=== PATIENT | male | born 1965 | race Caucasian/White ===

== ENCOUNTER 2022-02-17 10:03 | Inpatient (IN) ==
[2022-02-17] MEDS ORDERED: ACETAMINOPHEN 1,000 MG/100 ML VIAL IV STA (10:17)
[2022-02-17] MEDS ORDERED: SODIUM CHLORIDE 0.9% 1000ML 1,000 ML IV STA (10:17)
[2022-02-17] MEDS ORDERED: MULTI-VITAMIN INFUSION 10 ML, THIAMINE HCL 100 MG, FOLIC ACID 1 MG in SODIUM CHLORIDE 0... IV ONE (10:35)
[2022-02-17] MEDS ORDERED: LORazepam 2 MG/1 ML VIAL IV STA (10:39)
[2022-02-17] MEDS ORDERED: SODIUM CHLORIDE 0.9% 1000ML 1,000 ML IV ONE (10:39)
[2022-02-17 10:46] LABS: Basophils # (auto) 0.04 K/uL (0-0.2); Basophils % (auto) 0.4 %; Eosinophils % (auto) 0.9 %; Hematocrit (blood only) 54.4 % (40.1-51.0); Hemoglobin 19.2 g/dl (14.0-18.0); Immature Granulocytes # (auto) 0.04 K/uL (0.00-0.02); Immature Granulocytes % (auto) 0.4 %; Lymphocytes # (auto) 1.74 K/uL (1.2-3.4); Lymphocytes % (auto) 15.5 %; Mean Corpuscular Hemoglobin 32.1 pg (25.0-34.0); Mean Corpuscular Hgb Conc 35.3 g/dL (32.0-36.0); Mean Corpuscular Volume 90.8 fL (80.0-100.0); Mean Platelet Volume 9.9 fL (9.4-12.4); Monocytes # (auto) 1.19 K/uL (0.24-0.82); Monocytes % (auto) 10.6 %; Neutrophils # (auto) 8.14 K/uL (1.4-6.5); Neutrophils % (auto) 72.2 %; Platelet Count 248 K/uL (130-400); RDW Coefficient of Variation 12.9 % (11.5-14.5); RDW Standard Deviation 42.4 fL (36.4-46.3); Red Blood Count 5.99 M/uL (4.63-6.08); White Blood Count 11.25 K/ul (4.8-10.8)
[2022-02-17 10:56] LABS: INR 1.2 (0.9-1.1); Prothrombin Time 12.2 Seconds (9.0-12.0)
[2022-02-17 11:15] LABS: Albumin Globulin Ratio 1.1 (0.9-2); Albumin Level 4.1 gm/dl (3.4-5.0); BUN Creatinine Ratio 10.8 (10-20); Bilirubin,Total 1.4 mg/dl (0.2-1.0); Calcium 9.2 mg/dl (8.5-10.1); Creatinine Clr Calc Pharmacy 116.9 ml/min; Est GFR (African American) 114.8 ml/min; Est GFR (Non-African American) 99.1 ml/min; Globulin 3.8 gm/dl (2.5-4.0); Magnesium 1.7 mg/dl (1.7-2.4); Phosphorus 3.1 mg/dl (2.5-4.9); Potassium 3.7 mmol/L (3.5-5.1); Total Protein 7.9 gm/dl (6.0-8.3)
[2022-02-17 11:17] LABS: Troponin I High Sensitivity 10.8 pg/ml (0-20)
--- NOTE | 2022-02-17 11:32 | Electrocardiogram Report ---
Test Reason : Blood Pressure : / mmHG Vent. Rate : 096 BPM Atrial Rate : 096 BPM P-R Int : 140 ms QRS Dur : 072 ms QT Int : 384 ms P-R-T Axes : 036 026 058 degrees QTc Int : 485 ms Normal sinus rhythm Poor R wave progression, consider anterior SC vs. lead placement vs. LVH Abnormal ECG When compared with ECG of 18-JUL-2012 10:10, Sinus rhythm has replaced Atrial fibrillation Confirmed by Ryland Frias ([id number]) on 02/17/2022 11:32:17 AM Referred By: REFERRED SELF Confirmed By:Ryland Frias
--- NOTE | 2022-02-17 12:37 | XRay Report ---
XR chest 1V portable HISTORY: Weakness. Neck pain COMPARISON: Chest 07/17/2012. FINDINGS: A few left basilar linear densities persist and favor subsegmental atelectasis or scarring. Otherwise, the lungs are clear. The heart is normal in size. No pleural effusions. No pneumothorax. IMPRESSION: A few left basilar linear densities which favor subsegmental atelectasis or scarring. ACT 112: Negative or not required by law. Electronically signed by: Christiano Rouse M.D. 02/17/2022 12:36 PM
[2022-02-17] MEDS ORDERED: OPTIRAY 320 500ml IV ONE (12:56)
--- NOTE | 2022-02-17 13:14 | CT Scan Report ---
UNENHANCED CT OF THE BRAIN; CT ANGIOGRAM OF THE BRAIN; CT ANGIOGRAM OF THE NECK CLINICAL HISTORY: Neck pain. Right-sided paresthesias and weakness. COMPARISON STUDY: No priors. TECHNIQUE: Unenhanced axial CT scan of the brain is performed. Subsequently, following the IV adminis tration of 114 of Optiray 320, CT angiogram of the head and neck was performed from the aortic arch t o the vertex. Images are reviewed in the axial, sagittal, and coronal planes. 3-D MIPS images are cre ated and assessed. IV contrast was administered without complication. All measurements were calculate d based on NASCET criteria. A dose lowering technique was utilized adhering to the principles of ALA RA. CT DOSE: 2494.32 mGy.cm FINDINGS: Brain parenchyma: There is loss of pan-white matter differentiation throughout the left occipital lo be and within the posterior left temporal lobe consistent with a large subacute infarct. There is mil d surrounding edema. No hemorrhage or midline shift is identified. There is no evidence of enhancing mass lesion on the angiogram phase images. There is an age indeterminate but chronic-appearing lacuna r infarct within the left aspect of the fabian. The ventricles, sulci, and cisterns are normal in confi guration. No extra-axial fluid collection is seen. Thoracic aorta: Visualized portions of the thoracic aorta are normal in caliber. The aortic arch demo nstrates standard 3-vessel anatomy. Right carotid arterial system: The right common carotid artery is widely patent, as are the right int ernal and external carotid arteries. Calcified plaque is noted in the carotid bulb. Left carotid arterial system: The left common carotid artery is widely patent. Atherosclerotic plaque within the carotid bulb causes less than 50% luminal narrowing of the proximal internal carotid adan ry. The internal and external carotid arteries are otherwise widely patent. Vertebral arteries: There is focal high-grade stenosis of the proximal left vertebral artery. This is seen on axial image #82. There is mild stenosis of the origin of the right vertebral artery. The libia tebral arteries are otherwise patent bilaterally noting left-sided dominance. Subclavian arteries: There is moderate stenosis of the right subclavian artery at the thoracic outlet seen on axial image #74. The left subclavian artery is widely patent. Intracranial vasculature: There is moderate atherosclerotic calcification of the cavernous carotid ar teries. The internal carotid arteries are patent at the skull base, as are the anterior and middle ce rebral arteries bilaterally. There is focal high-grade stenosis within the complete occlusion of the left cavernous carotid artery, best seen on axial image #110. The vertebral arteries and the basilar artery are patent, as is the right posterior cerebral artery. There is complete thrombosis of the lef t posterior cerebral artery. This originates on axial image #122. The left vertebral artery is domina nt. No aneurysm is seen throughout the intracranial circulation. Jugular veins: Patent bilaterally. Dural sinuses: Patent. Lung apices: Partially visualized upper lobe lung parenchyma appears clear. Soft tissues: The visualized pharyngeal soft tissues are normal in appearance noting angiographic pha se technique. The oropharyngeal airway appears widely patent. The salivary and thyroid glands are nor mal in appearance. No cervical lymphadenopathy is seen. Skeletal structures: The calvarium appears intact. The cervical spine is maintained noting mild spond ylosis. No lytic or blastic lesion is seen. Orbits: The bony orbits are intact. Orbital contents are normal as visualized. Sinuses and mastoids: The paranasal sinuses are clear. The mastoid air cells are well pneumatized. IMPRESSION: 1. 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 2. No additional foci of acute ischemia are identified by CT. 3. There is no hemorrhage or midline shift. 4. 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 5. There is focal high-grade stenosis with near complete occlusion of the left cavernous carotid adan ry. 6. The remaining intracranial vessels are patent. 7. There is focal high-grade stenosis of the proximal left vertebral artery. 8. There is at least mild stenosis at the origin of the right vertebral artery. 9. There is moderate stenosis of the right subclavian artery at the thoracic outlet. 10. Additional findings as above. ACT 112: Negative or not required by law. Electronically signed by: Hemanth Pandya M.D. 02/17/2022 1:13 PM
--- NOTE | 2022-02-17 13:28 | CT Scan Report ---
CT ANGIOGRAM OF THE CHEST COMBO CLINICAL HISTORY: Right arm pain and numbness. Hypertension. COMPARISON STUDY: Chest x-ray dated 02/17/2022. TECHNIQUE: Before and following the IV administration of 114 cc of Optiray 320, CT angiogram of the c hest was performed from the thoracic inlet to the upper abdomen utilizing the dissection protocol. Im ages are reviewed in the axial, sagittal, and coronal planes. 3-D MIPS images are created and assesse d. IV contrast was administered without complication. A dose lowering technique was utilized adherin g to the principles of ALARA. The examination is degraded by motion artifact, as well as by streak ar tifact from the arms which could not be elevated above the chest. FINDINGS: Thyroid: Imaged portions of the thyroid gland are normal in size and attenuation. Thoracic aorta: No intramural hematoma is seen on the unenhanced series. There is moderate atheroscle rotic calcification of the thoracic aorta, which is normal in caliber and demonstrates standard 3-ves jazmyne arch anatomy. No dissection is seen. The arch vessels are patent. There is moderate stenosis of t he right subclavian artery at the thoracic outlet seen on axial image #300. There is focal high-grade stenosis of the proximal left vertebral artery seen on image #303. Pulmonary vasculature: The pulmonary trunk is normal in caliber. There are no filling defects identif ied in the main, lobar, or segmental pulmonary arteries to indicate pulmonary embolus. Heart: The heart is mildly enlarged and without pericardial effusion. The coronary arteries are also calcified. Lungs and pleural spaces: Low suspicion 3 mm left lower lobe pulmonary nodules are seen on images #21 9, #237, and #239. There is no airspace consolidation or pleural effusion. Scarring/atelectasis is se en at the lung bases. The trachea and central airways are patent. Punctate calcified granulomas are i ncidentally noted. Mediastinum: There is no mediastinal lymphadenopathy. Phoebe: Clear. Axillae: There is no axillary lymphadenopathy. Upper abdomen: There is a small hiatal hernia. Partially visualized upper abdominal viscera is within normal limits. Skeletal structures: No lytic or blastic bony lesions are seen. IMPRESSION: 1. Unremarkable CT angiogram of the thoracic aorta. 2. There is moderate stenosis of the right subclavian artery at the thoracic outlet. 3. There is focal high-grade stenosis of the proximal left vertebral artery. 4. No airspace consolidation or pleural effusion is identified. 5. Advanced coronary artery calcification. 6. There is no evidence of pulmonary embolus in the main, lobar, or segmental pulmonary arteries. 7. Additional findings as above. ACT 112: Negative or not required by law. Electronically signed by: Hemanth Pandya M.D. 02/17/2022 1:26 PM
[2022-02-17] MEDS ORDERED: LORazepam 1 MG TAB SL STA (14:32)
[2022-02-17] MEDS: NICOTINE 21 MG/24 HR TDSY TD SCH (15:14)
--- NOTE | 2022-02-17 15:18 | History & Physical Report ---
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 territory SENIOR ENVIRONMENTAL PRACTICE LEADER with ipsilateral high-grade stenosis and near complete occlusion of left cavernous carotid, left vertebral Patient with right-sided weakness, some decreased right-sided decreased coordination, and right decreased visual acuity with right peripheral field cut - Was discussed with ER provider and neurology, given last known well 4 weeks ago and current symptom severity 48 hours patient is not a tPA candidate, SENIOR ENVIRONMENTAL PRACTICE LEADER occlusion/ not a thrombectomy candidate Start on aspirin 81 mg - MRI pending Atorvastatin 40 mg started, increased to 80 lungs LDL has not <50 Patient with ipsilateral severe carotid disease. Severe left vertebral and mild right vertebral disease. Vascular consulted Type II DM evaluation including A1c pending, insulin SSI as noted Permissive hypertension, labetalol for systolic greater than 180, diastolic greater than 110 (2) Alcohol dependence: Plan: Alcohol abuse Last drink chema 02/16 prior to admission Drinks at least 2 large whiskey drinks per day, each drink is about the size of a coffee cup of liquor. Handle lasts about a week, previously would last a few days. Did cut back about 6 months ago No history of withdrawal or seizure, has not gone for more than 24 hours without alcohol in "a long time High risk for withdrawal, seizure risk and currently with subacute large territory stroke as above We will start on Librium protocol, AWSS Banana bag, thiamine daily. high dose thiamine protocol ordered. Folic acid daily (3) Left carotid artery stenosis: Plan: Left-sided focal carotid stenosis Ipsilateral to stroke as noted above Vascular consulted (4) Hypertension: Plan: Permissive hypertension in the setting of CVA, As noted (5) Elevated hemoglobin: Plan: Suspect mild elevation in the setting of sleep apnea and chronic tobacco use Trend - No ches tpain or sob at assessment (6) Coronary artery disease: Plan: Coronary artery disease Noted with extensive calcifications on CT. Patient denies history of AR/CAD Lipid panel pending Continue atorvastatin moderate dose at this time, increase to high-dose as long as LDL not suppressed Aspirin as noted (7) CAD (coronary artery disease): (8) Type 2 diabetes mellitus: Plan: Patient reports BSG was normal after being on metformin, had weight loss and no longer required antilipemics many years ago Admitting BSG 150 Weight-based 8 units Lantus twice daily, CF 45, carb ratio 16 goal BSG [id number] while inpatient -A1c pending History of Present Illness Primary Care Provider: Seth Mueller Anton Morales is a 56-year-old male with daily alcohol use, tobacco use, history of hypertension, DM2 who presented with 2 weeks of right upper and lower extremity poor coordination and expressive aphasia and to was recommended for stroke management. Head CT shows a large subacute left SENIOR ENVIRONMENTAL PRACTICE LEADER infarct, no hemorrhage/midline shift, complete thrombosis of the left SENIOR ENVIRONMENTAL PRACTICE LEADER, focal high-grade stenosis with near complete occlusion of left cavernous carotid, focal high-grade stenosis of proximal left vertebral artery, mild stenosis at the origin of the right vertebral, moderate stenosis of right subclavian Chest CTA: Unremarkable CT angiogram of the thoracic aorta, moderate stenosis of right subclavian artery, focal high-grade stenosis of proximal left vertebral, no evidence of PE, advanced coronary calcification CXR: Bibasilar linear densities favoring atelectasis versus scarring Admitting WBC 11.25, hemoglobin 19? Hemoconcentration versus polycythemia with tobacco use MCV 90 INR 1.2 Sodium 134, potassium 3.7 Creatinine 0.83 with normal baseline Total bili 1.4, AST 12, ALT 10, alk phos 104 Ethyl alcohol negative COVID-negative EKG: Normal sinus rhythm with poor R wave progression. Sinus, rate 96. EKG 07/18/2022: A. fib rate controlled External medication reconciliation unavailable PCP Dr. Ervin Dominguez is seen at the beside with his present. Endorses R side arm and leg weakness. AWSS 8. "Sydni" reports over the last 3-4 weeks has been having numbness, tingling and poor coordination in his R arm and leg. Has had some pain sometimes and then complete numbness in the R arm/hand/leg intermittently. His came home from work this past thursday (48 hours ago) and was still in bed. Walking was muchmore unstable than previously, and was staying in bed very fatigued and weak. 'Equilibrium jsut wasn't right" Seems more forgetful and has been having some difficulty with word searching. L arm is 'ok sometimes some light tingling in fingertips but nothing like the right.' EtOH intake daily. AWife thought it might have been withdrawal and didn't immediately come in for stroke bc thought it could have been alchol Daily drinking 2x whiskey in the evening, each drink 'to go coffee cup sized.' 1.5 handle per week, cut back about 6 months from a handle every few days. Has not had an alcohol free period greater than 24 hours in 'a long time.' NO hx of seizures, no history of alcohol withdrawal. Daily smoker 1ppd since teenager, at least 40 years No vaping Denies hx of heart attacks, chest pain, or stroke Denies hx of TIA Endorses RIA on CPAP Denies hx COPD Not sure if HTN Hx T2DM. Pt thinks he was on this a whiel ago, his reports this was ~9 years ago, has not been on recently and pt thinks his blood sugar was good and was OK to stop this. Was on 'some type of shot at one point.' Lost a lot of weight on a shot, doesn't remember the details but hasn't needed a medicine for blood sugar in ~4-5 years. 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 Code Status: Full Code. Allergies Allergy/AdvReac Type Severity Reaction Status Date / Time No Known Allergies Allergy Mild NKA Verified 02/17/22 15:50 Home Medications Medication Instructions Recorded Confirmed Type No Known Home Medications 02/17/22 02/17/22 History Past Med/Surg History Medical History (Updated 02/17/22 @ 19:09 by Adan Pretty MD) Alcohol dependence Atrial fibrillation Hypertension Medical non-compliance Type 2 diabetes mellitus Family History Other Family history non-contributory Social History Smoking Status: Current every day smoker Tobacco Type: Cigarettes Cigarettes Per Day: 10; Do You Dip or Chew Tobacco: No; Hx Alcohol Use: Yes Alcohol type: hard liquor Alcohol Intake Frequency Comment: Daily Hx Substance Use: No Preferred Language: Malian 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 NAD. Cooperative. HEENT: Atraumatic, normocephalic. Pulm: CTAB A&P. -wheezes, -rales, -rhonchi. Symmetrical chest rise. No increase in work of breathing. No respiratory distress. Cardiac: RRR, -mrg. Radial pulses intact and symmetrical. Abdominal: Nontender, nondistended, soft. BS present. Neuro: 4 -/5 strength to right hip flexion, ankle dorsiflexion/plantarflexion compared to 5/5 on the left. Studio Hand strength 5/5 bilaterally, elbow flexion/extension 5/5 bilaterally. Sensation to soft touch qualitatively decreased in right arm and right leg compared to left. Decreased visual acuity in the right eye across all visual banda, right peripheral field cut/peripheral visual loss. [id number] with impaired coordination using right leg, [id number] testing with mild dysmetria on right side Results & Data Results & Data ([facility]) Vital Signs (Past 12 Hours) Vital Signs Temp Pulse Pulse Resp BP BP Pulse Ox 02/17/22 13:41 167/107 H 02/17/22 13:41 87 24 98 02/17/22 13:40 97 02/17/22 13:00 82 21 97 02/17/22 13:00 167/132 H 02/17/22 12:56 179/108 H 02/17/22 12:56 86 22 99 02/17/22 12:30 83 21 97 02/17/22 12:30 162/98 H 02/17/22 12:16 98 02/17/22 12:00 183/100 H 02/17/22 11:54 92 02/17/22 11:30 85 23 97 02/17/22 11:30 163/112 H 02/17/22 11:00 88 25 H 97 02/17/22 11:00 186/113 H 02/17/22 10:49 87 16 97 02/17/22 10:49 187/109 H 02/17/22 10:30 99 H 31 H 02/17/22 10:29 97 H 18 02/17/22 10:53 95 02/17/22 10:50 88 20 187/109 H 97 02/17/22 10:33 95 H 20 97 02/17/22 10:06 36.4 C L 111 H 16 162/127 H 97 O2 Del Method 02/17/22 13:41 02/17/22 13:41 02/17/22 13:40 02/17/22 13:00 02/17/22 13:00 02/17/22 12:56 02/17/22 12:56 02/17/22 12:30 02/17/22 12:30 02/17/22 12:16 02/17/22 12:00 02/17/22 11:54 02/17/22 11:30 Room Air 02/17/22 11:30 02/17/22 11:00 Room Air 02/17/22 11:00 02/17/22 10:49 02/17/22 10:49 02/17/22 10:30 02/17/22 10:29 02/17/22 10:53 Room Air 02/17/22 10:50 Room Air 02/17/22 10:33 Room Air 02/17/22 10:06 Room Air PG Care Time/CCT Total # of Minutes Spent Total Time Spent with Patient: Total time spent is greater than 50% in coordination of care (as documented) at patient's floor/unit and/or counseling patient: Coding Level of Care Code 76801 Initial Inpt Care Lvl 3 Diagnoses Cerebrovascular accident I63.332 CVA mechanism: thrombosis Laterality of affected vessel: left Precerebral and cerebral artery: posterior cerebral artery Alcohol dependence F10.20 Left carotid artery stenosis I65.22 Hypertension I10 Elevated hemoglobin D58.2 Coronary artery disease I25.10 CAD (coronary artery disease) I25.10 Type 2 diabetes mellitus E11.9 (1) Cerebrovascular accident CVA mechanism: thrombosis Laterality of affected vessel: left Precerebral and cerebral artery: posterior cerebral artery Qualified Code(s): I63.332 - Cerebral infarction due to thrombosis of left posterior cerebral artery
--- NOTE | 2022-02-17 17:02 | Emergency Department Note ---
Impression & Plan Cerebrovascular accident, Hypertension, Elevated hemoglobin, Elevated hematocrit, Medical non-compliance, Alcohol dependence, Left carotid artery stenosis ED Provider Note NAME: CELINE GARCIA AGE: 56 SEX: M ARRIVES VIA: Walk-In INFORMANT: Patient ED PROVIDER(S): Anibal Rivas MD CHIEF COMPLAINT: Right sided weakness. PLAN: Disposition: Admit MEDICAL DECISION MAKING: The patient is a 56-year-old gentleman with a past medical history of hyperte nsion, diabetes, alcohol abuse/dependence, history of atrial fibrillation who presents to the emergency department accompanied by his as a walk-in for evaluation of ongoing difficulty with balance and right sided numbness tingling and weakness over the past several weeks. The patient's reports that he has not wanted to be evaluated and was only able to be convinced to come to the emergency department today. She reports that he has continued to work and there were no reports by his coworkers of any concern. The patient's admits that given his history of alcohol use can be difficult to notice any changes. He reports he drinks "2 drinks" a day though his reports that these are "large drinks". The patient reports he cannot recall the last time he is gone more than several days without drinking alcohol. They admit that the patient stopped going to his doctor and has stopped taking his medications for some time. On arrival the patient is no acute distress, afebrile with heart in the 100s and blood pressure 160s/120s. The patient appears clinically dry. He has subtle weakness of his right upper and right lower extremity with impaired coordination with [id number], alternating palms and [id number]. He appears to have mild-moderate expressive aphasia though it is unclear if he also has difficulty processing. He has a mild tremor. WBC 11.2K nonspecific. H/H 19.2/54.4 in the setting of smoking history and the patient's clinically dry appearance. Platelets within normal limits. INR 1.2 without prior for comparison. Chemistry without metabolic acidosis. Total bili 1.4 and AST and ALT and alk phos are not elevated. High-sensitivity troponin 10 .8, nonspecific. Lipase is not elevated. Medical alcohol was undetectable. COVID-19 RNA, VASQUEZ test was negative CT of the head and CTA of the head and neck were performed. This demonstrated large left [employer] territory subacute stroke. Note is made of complete occlusion of the left [employer] as well as near complete occlusion of the cavernous left ICA. Additional vascular findings also noted. Findings reviewed with the patient and his at the bedside. Of note, it became more apparent at this time that the patient does not appear that he is able to exhibit medical decision-making capacity due to his expressive aphasia as well as unclear understanding/processing of information. After I had exp lained his findings and concerns in detail, he was unable to repeat this in his own words in any substantive way. He was however in agreement to proceed with admission as this was his 's preference and decision. Of note, the patient was treated with IV fluid hydration including banana bag as well as Ativan for component of alcohol withdrawal. It is noted that the patient did not have any drowsiness following Ativan administration. Case was discussed with Dr. Pretty, [facility] hospitalist, who will evaluate the patient for admission. Case additionally discussed with Dr. Jackson and agrees that given duration of the patient's symptoms there will be no intervention for the patient's [employer] and ICA occlusions. Given no evidence of hemorrhagic transformation on CT he can begin aspirin. Admitting team updated. Triage Nursing notes reviewed and agree them. Prior medical records reviewed Vital Signs: reviewed Differential diagnosis: Infection, dehydration, metabolic abnormality, hypo/hyperglycemia, electrolyte disturbance, anemia, hypoxia, cardiac sources, intracerebral event, toxicologic, neurologic, as well as other pathologies. ER treatment provided: See below. Diagnostics interpreted by me: ECG: Normal sinus rhythm, 96 bpm, LVH, no overt ST elevation or depression, QTC 45, cures 72. Cardiac Monitoring: An order for continuous cardiac monitoring was placed and demonstrated normal sinus rhythm, 96 bpm, no ectopy. Laboratory studies: See below Imaging studies: See below Consultation(s): Dr. Pretty [facility] hospitalist Dr. Rodriguez, [place] neurology on-call. HPI: The patient is a 56-year-old gentleman with a past medical history of hypertension, diabetes, alcohol abuse/dependence, history of atrial fibrillation who presents to the emergency department accompanied by his as a walk-in for evaluation of ongoing difficulty with balance and right sided numbness tingling and weakness over the past several weeks. The patient's reports that he has not wanted to be evaluated and was only able to be convinced to come to the emergency department today. She reports that he has continued to work an d there were no reports by his coworkers of any concern. The patient's admits that given his history of alcohol use can be difficult to notice any changes. He reports he drinks "2 drinks" a day though his reports that these are "large drinks". The patient reports he cannot recall the last time he is gone more than several days without drinking alcohol. They admit that the patient stopped going to his doctor and has stopped taking his medications for some time. ROS: See above HPI for pertinent positives & negatives. A total of 10 systems reviewed and were otherwise negative. VITALS:See Below PHYSICAL EXAMINATION: GENERAL: Awake, alert, fatigued-appearing, in no distress HENT: Normocephalic, atraumatic. Oropharynx with dry mucous membranes and otherwise unremarkable. EYES: Normal conjunctiva. Sclera non-icteric. NECK: Supple. No nuchal rigidity. FROM. No JVD. RESPIRATORY: Clear to auscultation. CARDIAC: Regular rate, normal rhythm. Extremities warm and well perfused. Pulses equal. ABDOMEN: Soft, non-distended. No tenderness to palpation. No rebound or guarding. No masses. RECTAL: Deferred. MUSCULOSKELETAL: Chest examination reveals no tenderness. The back is symmetrical on inspection without obvious abnormality. There is no CVA tenderness to palpation. No joint edema. LOWER EXTREMITIES: Calves are equal size bilaterally and non-tender. No edema. No discoloration. NEURO: Subtle weakness of his right upper and right lower extremity with impaired coordination with [id number], alternating palms and maee-tp-[id number]. He appears to have mild-moderate expressive aphasia though it is unclear if he also has difficulty processing. He has a mild tremor. SKIN: No rash or jaundice noted. Anibal Rivas MD Past Med/Surg History Medical History Alcohol dependence Atrial fibrillation Hypertension Medical non-compliance Type 2 diabetes mellitus Family History Other Family history non-contributory Social History Smoking Status: Current every day smoker Tobacco Type: Cigarettes Hx Alcohol Use: Yes Alcohol type: hard liquor Alcohol Intake Frequency Comment: Daily Preferred Language: Turkish Feels Safe at Home: Yes Allergies Allergies Allergy/AdvReac Type Severity Reaction Status Date / Time No Known Allergies Allergy Mild NKA Verified 02/17/22 15:50 Home Meds Home Medications Medication Instructions Recorded Confirmed No Known Home Medications 02/17/22 02/17/22 Results & Data (ED) Vital Signs Vital Signs - 24 hr 02/17/22 10:06 02/17/22 10:33 02/17/22 10:50 Temperature 36.4 C L Temperature Source Temporal Artery Scan Pulse Rate 111 H 95 H Pulse Rate [Apical] 88 Pulse Rate from SpO2 Sensor Respiratory Rate 16 20 20 Respiratory Effort / Characteristics Non-Labored Spontaneous Non-Labored Spontaneous Respiratory Depth Normal Normal Respiratory Pattern Regular Regular Blood Pressure 162/127 H Blood Pressure [Right Arm] 187/109 H Blood Pressure Mean 138 Blood Pressure Mean [Right Arm] 135 Blood Pressure Position Sitting Pulse Oximetry 97 97 97 Oxygen Delivery Method Room Air Room Air Room Air Sepsis Recent Fever Within 48 Hours No Sepsis New/Unexplained Change in Mental Status No Sepsis Action Taken by Nursing No Action Required 02/17/22 10:53 02/17/22 10:29 02/17/22 10:30 Temperature Temperature Source Pulse Rate 97 H 99 H Pulse Rate [Apical] Pulse Rate from SpO2 Sensor Respiratory Rate 18 31 H Respiratory Effort / Characteristics Respiratory Depth Respiratory Pattern Blood Pressure Blood Pressure [Right Arm] Blood Pressure Mean Blood Pressure Mean [Right Arm] Blood Pressure Position Pulse Oximetry 95 Oxygen Delivery Method Room Air Sepsis Recent Fever Within 48 Hours Sepsis New/Unexplained Change in Mental Status Sepsis Action Taken by Nursing 02/17/22 10:49 02/17/22 10:49 02/17/22 11:00 Temperature Temperature Source Pulse Rate 87 Pulse Rate [Apical] Pulse Rate from SpO2 Sensor 86 Respiratory Rate 16 Respiratory Effort / Characteristics Respiratory Depth Respiratory Pattern Blood Pressure 187/109 H 186/113 H Blood Pressure [Right Arm] Blood Pressure Mean 135 137 Blood Pressure Mean [Right Arm] Blood Pressure Position Pulse Oximetry 97 Oxygen Delivery Method Sepsis Recent Fever Within 48 Hours Sepsis New/Unexplained Change in Mental Status Sepsis Action Taken by Nursing 02/17/22 11:00 02/17/22 11:30 02/17/22 11:30 Temperature Temperature Source Pulse Rate 88 85 Pulse Rate [Apical] Pulse Rate from SpO2 Sensor 87 85 Respiratory Rate 25 H 23 Respiratory Effort / Characteristics Respiratory Depth Respiratory Pattern Blood Pressure 163/112 H Blood Pressure [Right Arm] Blood Pressure Mean 129 Blood Pressure Mean [Right Arm] Blood Pressure Position Pulse Oximetry 97 97 Oxygen Delivery Method Room Air Room Air Sepsis Recent Fever Within 48 Hours Sepsis New/Unexplained Change in Mental Status Sepsis Action Taken by Nursing 02/17/22 11:54 02/17/22 12:00 02/17/22 12:16 Temperature Temperature Source Pulse Rate Pulse Rate [Apical] Pulse Rate from SpO2 Sensor 87 95 H Respiratory Rate Respiratory Effort / Characteristics Respiratory Depth Respiratory Pattern Blood Pressure 183/100 H Blood Pressure [Right Arm] Blood Pressure Mean 127 Blood Pressure Mean [Right Arm] Blood Pressure Position Pulse Oximetry 92 98 Oxygen Delivery Method Sepsis Recent Fever Within 48 Hours Sepsis New/Unexplained Change in Mental Status Sepsis Action Taken by Nursing 02/17/22 12:30 02/17/22 12:30 02/17/22 12:56 Temperature Temperature Source Pulse Rate 83 86 Pulse Rate [Apical] Pulse Rate from SpO2 Sensor 83 84 Respiratory Rate 21 22 Respiratory Effort / Characteristics Respiratory Depth Respiratory Pattern Blood Pressure 162/98 H Blood Pressure [Right Arm] Blood Pressure Mean 119 Blood Pressure Mean [Right Arm] Blood Pressure Position Pulse Oximetry 97 99 Oxygen Delivery Method Sepsis Recent Fever Within 48 Hours Sepsis New/Unexplained Change in Mental Status Sepsis Action Taken by Nursing 02/17/22 12:56 02/17/22 13:00 02/17/22 13:00 Temperature Temperature Source Pulse Rate 82 Pulse Rate [Apical] Pulse Rate from SpO2 Sensor 82 Respiratory Rate 21 Respiratory Effort / Characteristics Respiratory Depth Respiratory Pattern Blood Pressure 179/108 H 167/132 H Blood Pressure [Right Arm] Blood Pressure Mean 131 143 Blood Pressure Mean [Right Arm] Blood Pressure Position Pulse Oximetry 97 Oxygen Delivery Method Sepsis Recent Fever Within 48 Hours Sepsis New/Unexplained Change in Mental Status Sepsis Action Taken by Nursing 02/17/22 13:40 02/17/22 13:41 02/17/22 13:41 Temperature Temperature Source Pulse Rate 87 Pulse Rate [Apical] Pulse Rate from SpO2 Sensor 92 H 88 Respiratory Rate 24 Respiratory Effort / Characteristics Respiratory Depth Respiratory Pattern Blood Pressure 167/107 H Blood Pressure [Right Arm] Blood Pressure Mean 127 Blood Pressure Mean [Right Arm] Blood Pressure Position Pulse Oximetry 97 98 Oxygen Delivery Method Sepsis Recent Fever Within 48 Hours Sepsis New/Unexplained Change in Mental Status Sepsis Action Taken by Nursing Laboratory Data Attestation: I reviewed the patient's lab results. Result diagrams: 02/17/22 10:33 02/17/22 10:33 Lab Results 02/17/22 02/17/22 02/17/22 Range/Units 10:33 10:33 10:33 WBC 11.25 H (4.8-10.8) K/ul RBC 5.99 (4.63-6.08) M/uL Hgb 19.2 H (14.0-18.0) g/dl Hct 54.4 H (40.1-51.0) % MCV 90.8 (80.0-100.0) fL MCH 32.1 (25.0-34.0) pg MCHC 35.3 (32.0-36.0) g/dL RDW Std Deviation 42.4 (36.4-46.3) fL RDW Coeff of Mary 12.9 (11.5-14.5) % Plt Count 248 (130-400) K/uL MPV 9.9 (9.4-12.4) fL Immature Gran % (Auto) 0.4 % Neut % (Auto) 72.2 % Lymph % (Auto) 15.5 % [place] % (Auto) 10.6 % Eos % (Auto) 0.9 % Baso % (Auto) 0.4 % Neut # (Auto) 8.14 H (1.4-6.5) K/uL Lymph # (Auto) 1.74 (1.2-3.4) K/uL [place] # (Auto) 1.19 H (0.24-0.82) K/uL Eos # (Auto) 0.10 (0-0.50) K/uL Baso # (Auto) 0.04 (0-0.2) K/uL Immature Gran # (Auto) 0.04 H (0.00-0.02) K/uL PT 12.2 H (9.0-12.0) Seconds INR 1.2 H (0.9-1.1) Sodium 134 L (136-145) mmol/L Potassium 3.7 (3.5-5.1) mmol/L Chloride 97 L (98-107) mmol/L Carbon Dioxide 25 (21-32) mmol/L Anion Gap 12 H (3-11) BUN 9 (6-23) mg/dl Creatinine 0.83 (0.6-1.4) mg/dl Est Cr Clr Drug Dosing 116.9 ml/min Est GFR ( Amer) 114.8 ml/min Est GFR (Non-Af Amer) 99.1 ml/min BUN/Creatinine Ratio 10.8 (10-20) Glucose 150 H (70-99(Fasting)) mg/dl Calcium 9.2 (8.5-10.1) mg/dl Phosphorus 3.1 (2.5-4.9) mg/dl Magnesium 1.7 (1.7-2.4) mg/dl Total Bilirubin 1.4 H (0.2-1.0) mg/dl AST 12 L (13-39) U/L ALT 10 (7-52) U/L Alkaline Phosphatase 104 (34-104) U/L Troponin I High Sens 10.8 (0-20) pg/ml Total Protein 7.9 (6.0-8.3) gm/dl Albumin 4.1 (3.4-5.0) gm/dl Globulin 3.8 (2.5-4.0) gm/dl Albumin/Globulin Ratio 1.1 (0.9-2) Lipase 6 L (11-82) U/L Ethyl Alcohol mg/dL (<10.0) mg/dl SARS-CoV-2, RNA, NAAT (NEGATIVE) 02/17/22 02/17/22 Range/Units 10:55 10:57 WBC (4.8-10.8) K/ul RBC (4.63-6.08) M/uL Hgb (14.0-18.0) g/dl Hct (40.1-51.0) % MCV (80.0-100.0) fL MCH (25.0-34.0) pg MCHC (32.0-36.0) g/dL RDW Std Deviation (36.4-46.3) fL RDW Coeff of Mary (11.5-14.5) % Plt Count (130-400) K/uL MPV (9.4-12.4) fL Immature Gran % (Auto) % Neut % (Auto) % Lymph % (Auto) % [place] % (Auto) % Eos % (Auto) % Baso % (Auto) % Neut # (Auto) (1.4-6.5) K/uL Lymph # (Auto) (1.2-3.4) K/uL [place] # (Auto) (0.24-0.82) K/uL Eos # (Auto) (0-0.50) K/uL Baso # (Auto) (0-0.2) K/uL Immature Gran # (Auto) (0.00-0.02) K/uL PT (9.0-12.0) Seconds INR (0.9-1.1) Sodium (136-145) mmol/L Potassium (3.5-5.1) mmol/L Chloride (98-107) mmol/L Carbon Dioxide (21-32) mmol/L Anion Gap (3-11) BUN (6-23) mg/dl Creatinine (0.6-1.4) mg/dl Est Cr Clr Drug Dosing ml/min Est GFR ( Amer) ml/min Est GFR (Non-Af Amer) ml/min BUN/Creatinine Ratio (10-20) Glucose (70-99(Fasting)) mg/dl Calcium (8.5-10.1) mg/dl Phosphorus (2.5-4.9) mg/dl Magnesium (1.7-2.4) mg/dl Total Bilirubin (0.2-1.0) mg/dl AST (13-39) U/L ALT (7-52) U/L Alkaline Phosphatase (34-104) U/L Troponin I High Sens (0-20) pg/ml Total Protein (6.0-8.3) gm/dl Albumin (3.4-5.0) gm/dl Globulin (2.5-4.0) gm/dl Albumin/Globulin Ratio (0.9-2) Lipase (11-82) U/L Ethyl Alcohol mg/dL < 10.0 (<10.0) mg/dl SARS-CoV-2, RNA, NAAT NEGATIVE (NEGATIVE) Administered Medications Nicotine (Nicotine 21 Mg/24 Hr Tdsy) 21 mg TD QAM RADHA Stop: 03/19/22 14:44 Last Admin: 02/17/22 15:14 Dose: 21 mg Documented By: JS Discontinued Medications Sodium Chloride (Nss 1000ml) 1,000 mls @ 999 mls/hr IV .Q1H1M STA Stop: 02/17/22 11:17 Last Admin: 02/17/22 11:16 Dose: Not Given Documented By: TAURUS Acetaminophen (Ofirmev) 1,000 mg in 100 mls @ 400 mls/hr IV NOW STA Stop: 02/17/22 10:31 Last Infusion: 02/17/22 11:15 Dose: 0 mls/hr Documented By: Admin: 02/17/22 10:41 Dose: 400 mls/hr Documented By: EMELIA Multivitamins 10 ml/ Thiamine HCl 100 mg/ Folic Acid 1 mg/Sodium Chloride 1,011.2 mls @ 1,011.2 mls/hr IV .Q1H ONE Stop: 02/17/22 11:34 Last Infusion: 02/17/22 12:50 Dose: 0 mls/hr Documented By: Admin: 02/17/22 11:22 Dose: 1,011.2 mls/hr Documented By: TAURUS Sodium Chloride (Nss 1000ml) 1,000 mls @ 999 mls/hr IV .Q1H1M ONE Stop: 02/17/22 11:39 Last Infusion: 02/17/22 11:25 Dose: 0 mls/hr Documented By: Admin: 02/17/22 10:41 Dose: 999 mls/hr Documented By: EMELIA Ioversol (Optiray 320 500ml) 114 ml IV ONCE ONE Stop: 02/17/22 12:57 Last Admin: 02/17/22 12:42 Dose: 114 ml Documented By: HARSHA Lorazepam (Lorazepam 1 Mg/1 Ml Syr) 2 mg IV NOW STA; Protocol Stop: 02/17/22 10:40 Last Admin: 02/17/22 10:47 Dose: 2 mg Documented By: EMELIA Lorazepam (Lorazepam 1 Mg Tab) 1 mg SL NOW STA Stop: 02/17/22 14:33 Last Admin: 02/17/22 15:00 Dose: Not Given Documented By: TAURUS Imaging Data Radiologist's Impression: Chest X-Ray 02/17/22 10:17 XR chest 1V portable HISTORY: Weakness. Neck pain COMPARISON: Chest 07/17/2012. FINDINGS: A few left basilar linear densities persist and favor subsegmental atelectasis or scarring. Otherwise, the lungs are clear. The heart is normal in size. No pleural effusions. No pneumothorax. IMPRESSION: A few left basilar linear densities which favor subsegmental atelectasis or scarring. ACT 112: Negative or not required by law. Electronically signed by: Christiano Rouse M.D. 02/17/2022 12:[address] 02/17/22 10:[address] OF THE BRAIN; CT ANGIOGRAM OF THE BRAIN; CT ANGIOGRAM OF THE NECK CLINICAL HISTORY: Neck pain. Right-sided paresthesias and weakness. COMPARISON STUDY: No priors. TECHNIQUE: Unenhanced axial CT scan of the brain is performed. Subsequently, following the IV administration of 114 of Optiray 320, CT angiogram of the head and neck was performed from the aortic arch to the vertex. Images are reviewed in the axial, sagittal, and coronal planes. 3-D MIPS images are created and assessed. IV contrast was administered without complication. All measurements were calculated based on NASCET criteria. A dose lowering technique was utilized adhering to the principles of ALARA. CT DOSE: 2494.32 mGy.cm FINDINGS: Brain parenchyma: There is loss of pan-white matter differentiation throughout the left occipital lobe and within the posterior left temporal lobe consistent w ith a large subacute infarct. There is mild surrounding edema. No hemorrhage or midline shift is identified. There is no evidence of enhancing mass lesion on the angiogram phase images. There is an age indeterminate but chronic-appearing lacunar infarct within the left aspect of the fabian. The ventricles, sulci, and cisterns are normal in configuration. No extra-axial fluid collection is seen. Thoracic aorta: Visualized portions of the thoracic aorta are normal in caliber. The aortic arch demonstrates standard 3-vessel anatomy. Right carotid arterial system: The right common carotid artery is widely patent, as are the right internal and external carotid arteries. Calcified plaque is noted in the carotid bulb. Left carotid arterial system: The left common carotid artery is widely patent. Atherosclerotic plaque within the carotid bulb causes less than 50% luminal narrowing of the proximal internal carotid artery. The internal and external carotid arteries are otherwise widely patent. Vertebral arteries: There is focal high-grade stenosis of the proximal left vertebral artery. This is seen on axial image #82. There is mild stenosis of the origin of the right vertebral artery. The vertebral arteries are otherwise patent bilaterally noting left-sided dominance. Subclavian arteries: There is moderate stenosis of the right subclavian artery at the thoracic outlet seen on axial image #74. The left subclavian artery is widely patent. Intracranial vasculature: There is moderate atherosclerotic calcification of the cavernous carotid arteries. The internal carotid arteries are patent at the skull base, as are the anterior and middle cerebral arteries bilaterally. There is focal high-grade stenosis within the complete occlusion of the left cavernous carotid artery, best seen on axial image #110. The vertebral arteries and the basilar artery are patent, as is the right posterior cerebral artery. There is complete thrombosis of the left posterior cerebral artery. This originates on axial image #122. The left vertebral artery is dominant. No aneurysm is seen throughout the intracranial circulation. Jugular veins: Patent bilaterally. Dural sinuses: Patent. Lung apices: Partially visualized upper lobe lung parenchyma appears clear. Soft tissues: The visualized pharyngeal soft tissues are normal in appearance noting angiographic phase technique. The oropharyngeal airway appears widely patent. The salivary and thyroid glands are normal in appearance. No cervical lymphadenopathy is seen. Skeletal structures: The calvarium appears intact. The cervical spine is maintained noting mild spondylosis. No lytic or blastic lesion is seen. Orbits: The bony orbits are intact. Orbital contents are normal as visualized. Sinuses and mastoids: The paranasal sinuses are clear. The mastoid air cells are well pneumatized. IMPRESSION: 1. There is a large subacute left [employer] territory infarct. 2. No additional foci of acute ischemia are identified by CT. 3. There is no hemorrhage or midline shift. 4. 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 5. There is focal high-grade stenosis with near complete occlusion of the left cavernous carotid artery. 6. The remaining intracranial vessels are patent. 7. There is focal high-grade stenosis of the proximal left vertebral artery. 8. There is at least mild stenosis at the origin of the right vertebral artery. 9. There is moderate stenosis of the right subclavian artery at the thoracic outlet. 10. Additional findings as above. ACT 112: Negative or not required by law. Electronically signed by: Hemanth Pandya M.D. 02/17/2022 1:13 PM Head CTA 02/17/22 10:[address] OF THE BRAIN; CT ANGIOGRAM OF THE BRAIN; CT ANGIOGRAM OF THE NECK CLINICAL HISTORY: Neck pain. Right-sided paresthesias and weakness. COMPARISON STUDY: No priors. TECHNIQUE: Unenhanced axial CT scan of the brain is performed. Subsequently, following the IV administration of 114 of Optiray 320, CT angiogram of the head and neck was performed from the aortic arch to the vertex. Images are reviewed in the axial, sagittal, and coronal planes. 3-D MIPS images are created and assessed. IV contrast was administered without complication. All measurements were calculated based on NASCET criteria. A dose lowering technique was utilized adhering to the principles of ALARA. CT DOSE: 2494.32 mGy.cm FINDINGS: Brain parenchyma: There is loss of pan-white matter differentiation throughout the left occipital lobe and within the posterior left temporal lobe consistent with a large subacute infarct. There is mild surrounding edema. No hemorrhage or midline shift is identified. There is no evidence of enhancing mass lesion on the angiogram phase images. There is an age indeterminate but chronic-appearing lacunar infarct within the left aspect of the fabian. The ventricles, sulci, and cisterns are normal in configuration. No extra-axial fluid collection is seen. Thoracic aorta: Visualized portions of the thoracic aorta are normal in caliber. The aortic arch demonstrates standard 3-vessel anatomy. Right carotid arterial system: The right common carotid artery is widely patent, as are the right internal and external carotid arteries. Calcified plaque is noted in the carotid bulb. Left carotid arterial system: The left common carotid artery is widely patent. Atherosclerotic plaque within the carotid bulb causes less than 50% luminal narrowing of the proximal internal carotid artery. The internal and external carotid arteries are otherwise widely patent. Vertebral arteries: There is focal high-grade stenosis of the proximal left vertebral artery. This is seen on axial image #82. There is mild stenosis of the origin of the right vertebral artery. The vertebral arteries are otherwise patent bilaterally noting left-sided dominance. Subclavian arteries: There is moderate stenosis of the right subclavian artery at the thoracic outlet seen on axial image #74. The left subclavian artery is widely patent. Intracranial vasculature: There is moderate atherosclerotic calcification of the cavernous carotid arteries. The internal carotid arteries are patent at the skull base, as are the anterior and middle cerebral arteries bilaterally. There is focal high-grade stenosis within the complete occlusion of the left cavernous carotid artery, best seen on axial image #110. The vertebral arteries and the basilar artery are patent, as is the right posterior cerebral artery. There is complete thrombosis of the left posterior cerebral artery. This originates on axial image #122. The left vertebral artery is dominant. No aneurysm is seen throughout the intracranial circulation. Jugular veins: Patent bilaterally. Dural sinuses: Patent. Lung apices: Partially visualized upper lobe lung parenchyma appears clear. Soft tissues: The visualized pharyngeal soft tissues are normal in appearance noting angiographic phase technique. The oropharyngeal airway appears widely patent. The salivary and thyroid glands are normal in appearance. No cervical lymphadenopathy is seen. Skeletal structures: The calvarium appears intact. The cervical spine is maintained noting mild spondylosis. No lytic or blastic lesion is seen. Orbits: The bony orbits are intact. Orbital contents are normal as visualized. Sinuses and mastoids: The paranasal sinuses are clear. The mastoid air cells are well pneumatized. IMPRESSION: 1. There is a large subacute left [employer] territory infarct. 2. No additional foci of acute ischemia are identified by CT. 3. There is no hemorrhage or midline shift. 4. 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 5. There is focal high-grade stenosis with near complete occlusion of the left cavernous carotid artery. 6. The remaining intracranial vessels are patent. 7. There is focal high-grade stenosis of the proximal left vertebral artery. 8. There is at least mild stenosis at the origin of the right vertebral artery. 9. There is moderate stenosis of the right subclavian artery at the thoracic outlet. 10. Additional findings as above. ACT 112: Negative or not required by law. Electronically signed by: Hemanth Pandya M.D. 02/17/2022 1:13 PM Neck CTA 02/17/22 10:[address] OF THE BRAIN; CT ANGIOGRAM OF THE BRAIN; CT ANGIOGRAM OF THE NECK CLINICAL HISTORY: Neck pain. Right-sided paresthesias and weakness. COMPARISON STUDY: No priors. TECHNIQUE: Unenhanced axial CT scan of the brain is performed. Subsequently, following the IV administration of 114 of Optiray 320, CT angiogram of the head and neck was performed from the aortic arch to the vertex. Images are reviewed in the axial, sagittal, and coronal planes. 3-D MIPS images are created and assessed. IV contrast was administered without complication. All measurements were calculated based on NASCET criteria. A dose lowering technique was utilized adhering to the principles of ALARA. CT DOSE: 2494.32 mGy.cm FINDINGS: Brain parenchyma: There is loss of pan-white matter differentiation throughout the left occipital lobe and within the posterior left temporal lobe consistent with a large subacute infarct. There is mild surrounding edema. No hemorrhage or midline shift is identified. There is no evidence of enhancing mass lesion on the angiogram phase images. There is an age indeterminate but chronic-appearing lacunar infarct within the left aspect of the fabian. The ventricles, sulci, and cisterns are normal in configuration. No extra-axial fluid collection is seen. Thoracic aorta: Visualized portions of the thoracic aorta are normal in caliber. The aortic arch demonstrates standard 3-vessel anatomy. Right carotid arterial system: The right common carotid artery is widely patent, as are the right internal and external carotid arteries. Calcified plaque is noted in the carotid bulb. Left carotid arterial system: The left common carotid artery is widely patent. Atherosclerotic plaque within the carotid bulb causes less than 50% luminal narrowing of the proximal internal carotid artery. The internal and external carotid arteries are otherwise widely patent. Vertebral arteries: There is focal high-grade stenosis of the proximal left vertebral artery. This is seen on axial image #82. There is mild stenosis of the origin of the right vertebral artery. The vertebral arteries are otherwise patent bilaterally noting left-sided dominance. Subclavian arteries: There is moderate stenosis of the right subclavian artery at the thoracic outlet seen on axial image #74. The left subclavian artery is widely patent. Intracranial vasculature: There is moderate atherosclerotic calcification of the cavernous carotid arteries. The internal carotid arteries are patent at the skull base, as are the anterior and middle cerebral arteries bilaterally. There is focal high-grade stenosis within the complete occlusion of the left cavernous carotid artery, best seen on axial image #110. The vertebral arteries and the basilar artery are patent, as is the right posterior cerebral artery. There is complete thrombosis of the left posterior cerebral artery. This originates on axial image #122. The left vertebral artery is dominant. No aneurysm is seen throughout the intracranial circulation. Jugular veins: Patent bilaterally. Dural sinuses: Patent. Lung apices: Partially visualized upper lobe lung parenchyma appears clear. Soft tissues: The visualized pharyngeal soft tissues are normal in appearance noting angiographic phase technique. The oropharyngeal airway appears widely patent. The salivary and thyroid glands are normal in appearance. No cervical lymphadenopathy is seen. Skeletal structures: The calvarium appears intact. The cervical spine is maintained noting mild spondylosis. No lytic or blastic lesion is seen. Orbits: The bony orbits are intact. Orbital contents are normal as visualized. Sinuses and mastoids: The paranasal sinuses are clear. The mastoid air cells are well pneumatized. IMPRESSION: 1. There is a large subacute left [employer] territory infarct. 2. No additional foci of acute ischemia are identified by CT. 3. There is no hemorrhage or midline shift. 4. 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 5. There is focal high-grade stenosis with near complete occlusion of the left cavernous carotid artery. 6. The remaining intracranial vessels are patent. 7. There is focal high-grade stenosis of the proximal left vertebral artery. 8. There is at least mild stenosis at the origin of the right vertebral artery. 9. There is moderate stenosis of the right subclavian artery at the thoracic outlet. 10. Additional findings as above. ACT 112: Negative or not required by law. Electronically signed by: Hemanth Pandya M.D. 02/17/2022 1:13 PM Chest CTA 02/17/22 10:40 CT ANGIOGRAM OF THE CHEST COMBO CLINICAL HISTORY: Right arm pain and numbness. Hypertension. COMPARISON STUDY: Chest x-ray dated 02/17/2022. TECHNIQUE: Before and following the IV administration of 114 cc of Optiray 320, CT angiogram of the chest was performed from the thoracic inlet to the upper abdomen utilizing the dissection protocol. Images are reviewed in the axial, sagittal, and coronal planes. 3-D MIPS images are created and assessed. IV contrast was administered without complication. A dose lowering technique was utilized adhering to the principles of ALARA. The examination is degraded by motion artifact, as well as by streak artifact from the arms which could not be elevated above the chest. FINDINGS: Thyroid: Imaged portions of the thyroid gland are normal in size and attenuation. Thoracic aorta: No intramural hematoma is seen on the unenhanced series. There is moderate atherosclerotic calcification of the thoracic aorta, which is normal in caliber and demonstrates standard 3-vessel arch anatomy. No dissection is seen. The arch vessels are patent. There is moderate stenosis of the right subclavian artery at the thoracic outlet seen on axial image #300. There is focal high-grade stenosis of the proximal left vertebral artery seen on image #303. Pulmonary vasculature: The pulmonary trunk is normal in caliber. There are no filling defects identified in the main, lobar, or segmental pulmonary arteries to indicate pulmonary embolus. Heart: The heart is mildly enlarged and without pericardial effusion. The coronary arteries are also calcified. Lungs and pleural spaces: Low suspicion 3 mm left lower lobe pulmonary nodules are seen on images #219, #237, and #239. There is no airspace consolidation or pleural effusion. Scarring/atelectasis is seen at the lung bases. The trachea and central airways are patent. Punctate calcified granulomas are incidentally noted. Mediastinum: There is no mediastinal lymphadenopathy. Phoebe: Clear. Axillae: There is no axillary lymphadenopathy. Upper abdomen: There is a small hiatal hernia. Partially visualized upper abdominal viscera is within normal limits. Skeletal structures: No lytic or blastic bony lesions are seen. IMPRESSION: 1. Unremarkable CT angiogram of the thoracic aorta. 2. There is moderate stenosis of the right subclavian artery at the thoracic o utlet. 3. There is focal high-grade stenosis of the proximal left vertebral artery. 4. No airspace consolidation or pleural effusion is identified. 5. Advanced coronary artery calcification. 6. There is no evidence of pulmonary embolus in the main, lobar, or segmental pulmonary arteries. 7. Additional findings as above. ACT 112: Negative or not required by law. Electronically signed by: Hemanth Pandya M.D. 02/17/2022 1:26 PM Discharge Plan Visit Data Chief Complaint: Neuro Symptoms/Deficit Stated Complaint: PAIN DOWN RIGHT SIDE OF BODY ED Provider: Anibal Rivas Discharge Problem: Cerebrovascular accident, Hypertension, Elevated hemoglobin, Elevated hematocrit, Medical non-compliance, Alcohol dependence, Left carotid artery stenosis : Cerebrovascular accident Qualifiers: CVA mechanism: thrombosis Precerebral and cerebral artery: posterior cerebral artery Laterality of affected vessel: left Qualified Code(s): I63.332 - Cerebral infarction due to thrombosis of left posterior cerebral artery
[2022-02-17] MEDS ORDERED: chlordiazePOXIDE ALCOHOL WITHDRAWL 50MG PO STA (17:25)
[2022-02-17] MEDS ORDERED: Ativan IV Alcohol Withdrawal--Active Protocol IV PRN (17:25)
[2022-02-17] MEDS ORDERED: GLUCOSE 10 TAB/TUBE PO PRN (17:25)
[2022-02-17] MEDS ORDERED: GLUCOSE 40% GEL 15 GM TUBE PO PRN (17:25)
[2022-02-17] MEDS ORDERED: GLUCAGON FOR INJ 1 MG VIAL SQ PRN (17:25)
[2022-02-17] MEDS ORDERED: DEXTROSE 50% 50 ML SYRINGE IV PRN (17:25)
[2022-02-17] MEDS ORDERED: PHARMACIST DISCHARGE MED REC CONSULT PRN (17:25)
[2022-02-17] MEDS ORDERED: LORazepam 2 MG in SYRINGE 0 ML IV PRN (17:25)
[2022-02-17] MEDS ORDERED: CARBOHYDRATES FOR HYPOGLYCEMIA PO PRN (17:25)
[2022-02-17] MEDS ORDERED: LORazepam 3 MG in SYRINGE 0 ML IV PRN (17:25)
[2022-02-17] MEDS ORDERED: FOLIC ACID 1 MG in SYRINGE 9.8 ML IV SCH (17:25)
[2022-02-17] MEDS ORDERED: LORazepam 1 MG in SYRINGE 0 ML IV PRN (17:25)
[2022-02-17] MEDS: chlordiazePOXIDE HCl 25 MG CAP PO SCH ×2 (18:12→23:54)
[2022-02-17] MEDS ORDERED: LABETALOL HCL IV 5 MG/ML 20ML IV STA (18:22)
[2022-02-17] MEDS ORDERED: LABETALOL HCL IV 5 MG/ML 20ML IV PRN (18:22)
[2022-02-17] MEDS: LANTUS PER UNIT CHARGE SQ SCH (21:06)
[2022-02-17] MEDS: INSULIN ASPART PER UNIT SC SCH (21:06)
[2022-02-18] MEDS: chlordiazePOXIDE HCl 25 MG CAP PO SCH (05:06)
[2022-02-18 07:22] LABS: Basophils # (auto) 0.06 K/uL (0-0.2); Basophils % (auto) 0.6 %; Eosinophils # (auto) 0.21 K/uL (0-0.50); Eosinophils % (auto) 2.1 %; Hematocrit (blood only) 49.6 % (40.1-51.0); Hemoglobin 17.5 g/dl (14.0-18.0); Immature Granulocytes # (auto) 0.03 K/uL (0.00-0.02); Immature Granulocytes % (auto) 0.3 %; Lymphocytes % (auto) 16.9 %; Mean Corpuscular Hemoglobin 32.3 pg (25.0-34.0); Mean Corpuscular Hgb Conc 35.3 g/dL (32.0-36.0); Mean Corpuscular Volume 91.7 fL (80.0-100.0); Mean Platelet Volume 9.7 fL (9.4-12.4); Monocytes # (auto) 1.22 K/uL (0.24-0.82); Monocytes % (auto) 12.2 %; Neutrophils # (auto) 6.81 K/uL (1.4-6.5); Neutrophils % (auto) 67.9 %; Platelet Count 217 K/uL (130-400); RDW Standard Deviation 43.2 fL (36.4-46.3); Red Blood Count 5.41 M/uL (4.63-6.08); White Blood Count 10.03 K/ul (4.8-10.8)
[2022-02-18] MEDS: INSULIN ASPART PER UNIT SC SCH ×4 (07:53→21:27)
[2022-02-18 07:55] LABS: Anion Gap 7 (3-11); BUN Creatinine Ratio 10.1 (10-20); Blood Urea Nitrogen 8 mg/dl (6-23); Calcium 8.9 mg/dl (8.5-10.1); Carbon Dioxide 29 mmol/L (21-32); Chloride 99 mmol/L (98-107); Chol HDL Ratio 4.3 (0-5); Cholesterol 162 mg/dl (0-200); Creatinine Clr Calc Pharmacy 122.8 ml/min; Est GFR (African American) 117.2 ml/min; Est GFR (Non-African American) 101.1 ml/min; Glucose 125 mg/dl (70-99(Fasting)); HDL Cholesterol 38 mg/dl; LDL Cholesterol Calculated 108 mg/dl; Sodium 135 mmol/L (136-145); Triglycerides 81 mg/dl (0-150); VLDL Cholesterol 16 mg/dl (0-30)
[2022-02-18 08:01] LABS: Estimated Average Glucose 166 mg/dl; Hemoglobin A1C 7.4 % (4.5-5.6)
[2022-02-18] MEDS: ASPIRIN 81 MG ECTAB PO SCH (08:29)
[2022-02-18] MEDS: FOLIC ACID 1 MG in SYRINGE 9.8 ML IV SCH (08:29)
[2022-02-18] MEDS: ATORVASTATIN 40 MG TAB PO SCH (08:29)
[2022-02-18] MEDS: LANTUS PER UNIT CHARGE SQ SCH ×2 (08:40→21:27)
[2022-02-18] MEDS ORDERED: THIAMINE HCL 300 MG in SODIUM CHLORIDE 0.9% 50 ML IV ONE (09:00)
[2022-02-18] MEDS ORDERED: THIAMINE HCL 100 MG in SYRINGE 9 ML IV SCH (09:00)
--- NOTE | 2022-02-18 09:22 | XCELERA ---
[id number]
[2022-02-18] MEDS: NICOTINE 21 MG/24 HR TDSY TD SCH (10:10)
--- NOTE | 2022-02-18 10:40 | Neurology Consultation ---
Date of Consultation February 18, 2022 Assessment & Plan (1) Cerebrovascular accident: (2) Left carotid artery stenosis: (3) Acute left DANDY TENDER stroke: Plan 56-year-old male with subacute left DANDY TENDER stroke involving the left occipital lobe extending into the temporal lobe and left thalamus, as well as left side of the splenium of the corpus callosum. 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 Stroke risk factors for this patient include type 2 diabetes mellitus, hypertension, (reported history of atrial fibrillation?), Cigarette smoking, medication noncompliance. History also notable for alcohol abuse/dependency. In addition to a completely occluded left posterior cerebral artery, this patient has a focal high-grade stenosis with near complete occlusion of the left cavernous carotid artery. A cavernous carotid stenosis would not be amenable to surgical intervention although stenting at a tertiary center could be considered on a [id number] basis. 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 Intervention not typically recommended for vertebral artery disease. Agree with atorvastatin and daily low-dose aspirin. I would also recommend adding clopidogrel 75 mg/day, dual antiplatelet therapy for the next 3 weeks, then transition to clopidogrel monotherapy. Patient should have a timely (within the next 1 to 2 weeks) assessment with a neurovascular specialist at a tertiary center, [facility], for further consideration of the high-grade stenosis of the left cavernous carotid. For the time being, however, medical management is recommended including antiplatelet medication and statin therapy as above. He will need formal outpatient visual field assessment. Given his dense right homonymous hemianopsia due to left occipital lobe infarct, however, I do not think his visual banda would be adequate for driving. He would need to be cleared by ophthalmology. Also, this patient has a colossal disconnection syndrome, acquired alexia. His speech fluency is mildly reduced as well. He would likely benefit from speech therapy. He will need additional rehab services as well including PT/OT. Ongoing compliance with medications will need to be stress, ongoing management of diabetes, alcohol cessation, cigarette smoking cessation. Permissive hypertension acceptable for the time being, systolic blood pressure 140 to 160 mmHg. History of Present Illness Reason for Consultation: Stroke Requesting Physician: Adan Franklin MD Attending Physician: Alex Camarena MD History of Present Illness The patient is a 56-year-old male who presented to the emergency department yesterday with a complaint of poor balance and right-sided weakness that have been present for the previous week. History notable for hypertension, diabetes, alcohol abuse, atrial fibrillation, noncompliance with medical management, not taking any medications recently. The patient does endorse some right-sided sensory loss and weakness, but otherwise is not aware of any other deficit. He seems a bit inattentive in general and is a limited historian. A CT angiogram of the head and neck revealed a large subacute left DANDY TENDER infarct without hemorrhagic conversion, complete thrombosis of the left posterior cerebral artery, and focal high-grade stenosis with near complete occlusion of the left cavernous carotid artery, focal high-grade stenosis of the proximal left vertebral artery, mild stenosis at the origin of the right vertebral artery, and moderate stenosis of the right subclavian artery at the thoracic outlet. Brain MRI revealed a subacute infarct within the left DANDY TENDER territory extending to the medial temporal lobe with involvement of the left thalamus as well. There was also a focus of ischemic injury within the left splenium of the corpus callosum. Corresponding signal change seen on coronal FLAIR and axial T2 sequences. Associated decreased signal on ADC map. I independently reviewed these images. Allergies Allergy/AdvReac Type Severity Reaction Status Date / Time No Known Allergies Allergy Mild NKA Verified 02/17/22 15:50 Home Medications Medication Instructions Recorded Confirmed Type No Known Home Medications 02/17/22 02/17/22 History Patient History Medical History Alcohol dependence Atrial fibrillation Hypertension Medical non-compliance Type 2 diabetes mellitus Family History Other Family history non-contributory Social History Smoking Status: Current every day smoker Tobacco Type: Cigarettes Cigarettes Per Day: 10; Do You Dip or Chew Tobacco: No; Hx Alcohol Use: Yes Alcohol type: hard liquor Alcohol Intake Frequency Comment: Daily Hx Substance Use: No Preferred Language: Sinhala Abstract Searcher Required: No Beliefs That Will Affect Care: None Current Living Situation: Spouse Feels Safe at Home: Yes Safety Concerns: Feels Safe At This Time Assistive Devices: None Review of Systems Constitutional: no fever and no chills Eyes: + blind spots; no diplopia Ear, Nose, Mouth, Throat: no hearing loss Respiratory: no cough and no dyspnea Cardiovascular: no chest pain and no palpitations Gastrointestinal: no nausea and no vomiting Genitourinary: no dysuria Musculoskeletal: no neck pain and no myalgia Integumentary: no rash and no lesions Neurologic: as per Subjective / HPI Psychiatric: no depression and no anxiety Hematologic / Lymphatic: no easy bleeding and no easy bruising Exam (Neuro) Constitutional: well developed and well nourished; no acute distress Eyes: PERRL, normal accommodation and EOM intact bilaterally; + abnormal visual field confrontation, no fundoscopic abnormality, no nystagmus and no papilledema Cardiovascular: Vessels: normal carotid upstroke; no carotid bruit Neurologic: Oriented to:: Person, Place and Time Memory: Short Term Intact and Remote Intact Attention: Span Intact; negative Concentration Intact Language: Naming Objects, Repeating Phrases and Other (Patient exhibits alexia) Speech Fluency: Dysfluency; negative Dysarthria Speech Aphasia: negative Aphasia Fund of Knowledge: Current Events, Past History and Vocabulary Cranial Nerves: Normal III, IV, (Pupils equal round reactive to light and accommodation, eye movements normal), V (Facial sensation intact), VII (There is no facial droop or weakness), VIII (Hearing intact), IX, X (Palate elevates to midline), XI (Shoulder shrug intact) and XII (Tongue protrudes to midline); Abnorm II (There is a dense right homonymous hemianopsia) Motor Strength: Normal Lower Extremities and Normal Upper Extremities; negative Pronator Drift Motor Tone: Normal Lower Extremities and Normal Upper Extremities Muscle Bulk/Involuntary Movements: No Involuntary Movements; negative Muscle Atrophy Sensation: Pain/Temperature Intact, Vibration Intact and Proprioception Intact; negative Light Touch Intact (Diminished light touch for the right arm and leg noted) Coordination: Normal, Finger-Nose Abnormal Laterality: Right and Heel- Hawley Abnormal Laterality: Right; negative Dysdiadochokinesia Deep Tendon Reflexes: Rt Triceps: 2+, Lt Triceps: 2+, Rt Biceps: 2+, Lt Biceps: 2+, Rt Brachioradialis: 2+, Lt Brachioradialis: 2+, Rt Patellar: 2+, Lt Patellar: 2+, Rt Ankle: 1+ and Lt Ankle: 1+ Special Tests: negative Babinski Present Details: Gait not tested in the context of patient's current neurological status. Results & Data ([facility]) Vital Signs (Past 12 Hours) Vital Signs Temp Pulse Pulse Resp BP BP Pulse Ox 02/18/22 07:38 163/104 H 02/18/22 07:35 36.4 C L 92 H 19 172/121 H 95 02/18/22 00:15 86 02/18/22 02:47 36.5 C 85 17 163/102 H 97 02/17/22 23:30 36.8 C 85 19 183/113 H 97 O2 Del Method 02/18/22 07:38 02/18/22 07:35 Room Air 02/18/22 00:15 02/18/22 02:47 Room Air 02/17/22 23:30 Room Air Laboratory Results WBC 10.03, hemoglobin 17.5, hematocrit 49.6, platelet count 217, sodium 135, potassium 3.5, BUN 8, creatinine 0.79, glucose 125, hemoglobin A1c 7.4, AST 12, ALT 10, triglycerides 81, cholesterol 162, LDL 108, VLDL 16, HDL [address] angiogram of the head and neck and brain MRI are as described in the history of present illness. Echocardiogram negative for interatrial shunt, left ventricular size normal, l eft ventricular systolic function normal, ejection fraction 55 to 60%, left ventricular wall motion normal, there is moderate concentric left ventricular hypertrophy, mild aortic root dilatation, right ventricle mildly dilated, left atrium mildly dilated. Electrocardiogram revealed normal sinus rhythm Coding Level of Care Code 20169 Initial Inpt Care Lvl 3 Diagnoses Cerebrovascular accident I63.332 CVA mechanism: thrombosis Laterality of affected vessel: left Precerebral and cerebral artery: posterior cerebral artery Left carotid artery stenosis I65.22 Acute left DANDY TENDER stroke I63.532 (1) Cerebrovascular accident CVA mechanism: thrombosis Laterality of affected vessel: left Precerebral and cerebral artery: posterior cerebral artery Qualified Code(s): I63.332 - Cerebral infarction due to thrombosis of left posterior cerebral artery
[2022-02-18] MEDS: CLOPIDOGREL BISULFATE 75 MG TAB PO SCH (13:23)
--- NOTE | 2022-02-18 13:23 | Pharmacy Report ---
- Date of Service February 18, 2022 - Pharmacy CVA/TIA Medication Review Medications to Prevent Stroke handout has been added to the patients discharge packet. Antiplatelet(s) * Aspirin, clopidogrel Cholesterol * High intensity statin: atorvastatin 40 mg daily DVT Prophylaxis * SCD knee Therapeutic Anticoagulation * Hx Afib/Aflutter noted, but anticoagulation is being deferred. Reached out to Dr. Camarena to request rationale. Type 2 Diabetes * Patient has T2DM, but is not on a diabetes medication with proven CVD benefit. I reached out to Dr. Camarena to determine if this will be deferred to their outpatient provider due to familiarity with risks/benefits of such therapies.
--- NOTE | 2022-02-18 17:09 | Hospitalist Progress Note ---
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 Ipsilateral high-grade stenosis and near complete occlusion of left cavernous carotid, left vertebral artery. Not amenable to intervention at this time per vascular surgery. Right-sided weakness, some decreased right-sided coordination, and right decreased visual acuity with right peripheral field cut. Brain MRI scan final report pending. Neurology consultation noted. Plavix has been added to aspirin. He is also on atorvastatin. Permissive hypertension. (2) Alcohol dependence: Plan: Scheduled Librium 10 mg 3 times a day. Supportive care. AWSS. He has received a Banana bag. Thiamine daily. Folic acid daily (3) Left carotid artery stenosis: Plan: Left-sided focal carotid stenosis. Not amenable to vascular intervention at this time per vascular surgery. (4) Hypertension: Plan: Permissive hypertension in the setting of CVA (5) Elevated hemoglobin: Plan: mild elevation in the setting of sleep apnea and chronic tobacco use. Serial labs (6) Coronary artery disease: Plan: Noted with extensive calcifications on CT. Patient denies history of [place]/CAD. Now on atorvastatin. (7) Type 2 diabetes mellitus: Plan: Patient reports BSG was normal after being on metformin, had weight loss and no longer required antilipemics many years ago. Now on Lantus. Sliding scale insulin coverage. ADA diet. Plan Anticipate eventual discharge to IPR facility Admission and Anticipated Discharge Date Admission Date: February 17, 2022 Subjective Alert and oriented. Neurology evaluation noted. Final MRI report noted. It appears he will need IPR placement. Continue OT, PT, speech therapies. Case discussed with vascular surgery and no consultation needed at this time. Review of Systems Review of Systems: Constitutional-no fever or chills ENT-no blurred vision, no double vision, no epistaxis, no sore throat Respiratory-no cough, no wheezing, no shortness of breath Cardiac-no palpitations, no chest pain, no syncope GI-no nausea, vomiting, diarrhea, melena, hematochezia -no urinary retention, no urinary incontinence, no dysuria, no hematuria Musculoskeletal-no joint pain, no muscle tenderness Skin-no bruising, no rashes, no pruritus Neuro-mild right hemiparesis. Psych-no depression, no anxiety Physical Exam Physical Exam: General-alert and oriented x3, no fevers, no chills HEENT-head atraumatic and normocephalic, pupils equal and reactive to light, extraocular muscles intact Neck-no lymphadenopathy or thyromegaly, trachea midline Chest-clear to auscultation percussion. No rales wheezing or rhonchi Cardiac-regular rate and rhythm, normal S1 and S2, no murmurs Abdomen-normal bowel sounds, nontender, no hepatosplenomegaly Extremities-no cyanosis, clubbing, or edema Neuro-cranial nerves II through XII intact, mild right hemiparesis noted. Psych-normal affect, normal mood Results & Data Results & Data ([facility]) Vital Signs (Past 12 Hours) Vital Signs Temp Pulse Pulse Resp BP BP Pulse Ox 02/18/22 15:38 37.2 C 90 17 162/99 H 94 02/18/22 10:36 36.7 C 89 18 146/97 H 95 02/18/22 08:00 87 02/18/22 07:38 163/104 H 02/18/22 07:35 36.4 C L 92 H 19 172/121 H 95 O2 Del Method 02/18/22 15:38 Room Air 02/18/22 10:36 Room Air 02/18/22 08:00 02/18/22 07:38 02/18/22 07:35 Room Air Laboratory Results 02/18/22 07:08 02/18/22 08:08 PG Care Time/CCT Total # of Minutes Spent Total Time Spent with Patient: Total time spent is greater than 50% in coordination of care (as documented) at patient's floor/unit and/or counseling patient: Coding Level of Care Code 80288 Subseq Hosp Care Lvl 3 Diagnoses Cerebrovascular accident I63.332 CVA mechanism: thrombosis Laterality of affected vessel: left Precerebral and cerebral artery: posterior cerebral artery Alcohol dependence F10.20 Left carotid artery stenosis I65.22 Hypertension I10 Elevated hemoglobin D58.2 Coronary artery disease I25.10 Type 2 diabetes mellitus E11.9 (1) Cerebrovascular accident CVA mechanism: thrombosis Laterality of affected vessel: left Precerebral and cerebral artery: posterior cerebral artery Qualified Code(s): I63.332 - Cerebral infarction due to thrombosis of left posterior cerebral artery
--- NOTE | 2022-02-18 18:14 | Magnetic Resonance Report ---
MR brain wo con HISTORY: 56 years-old Male cva acute strokelike symptoms COMPARISON: Head CT of same day TECHNIQUE: Multiplanar multisequence MRI of the brain was obtained without the use of IV contrast. FINDINGS: There is a large infarct involving the left temporal and occipital lobes measuring up to approximatel y 10.4 cm. This demonstrates increased T2/FLAIR signal with increased diffusion-weighted signal and d ecreased signal on the ADC map. Infarct extends into the left thalamus, the cavernous and left latera l aspect of the splenium of the corpus callosum. Cytotoxic edema and mass effect results in partial e ffacement of the temporal horn left lateral ventricle. No acute intracranial hemorrhage, midline shift, abnormal extra-axial collection, hydrocephalus or in tracranial mass. Mild scattered T2/FLAIR hyperintense foci noted throughout the white matter of the c erebral hemispheres. The cerebral venous sinuses and major arterial flow voids appear patent. Skull, orbits and soft tissues are unremarkable. Midline structures are within normal limits. IMPRESSION: 1. Large acute to subacute appearing infarct is redemonstrated within the left temporal and occipital lobes extending into the left thalamus and splenium of the corpus callosum. Cytotoxic edema related to the infarct results in partial effacement of the temporal horn left lateral ventricle. No hydrocep halus. 2. No acute intracranial hemorrhage or midline shift. ACT 112: Negative or not required by law. The above report was generated using voice recognition software. It may contain grammatical, syntax o r spelling errors. Electronically signed by: Troy Laurent M.D. 02/18/2022 6:12 PM
[2022-02-19] MEDS: THIAMINE HCL 100 MG in SYRINGE 9 ML IV SCH (09:32)
[2022-02-19] MEDS: FOLIC ACID 1 MG in SYRINGE 9.8 ML IV SCH (09:32)
[2022-02-19] MEDS: NICOTINE 21 MG/24 HR TDSY TD SCH (09:32)
[2022-02-19] MEDS: ATORVASTATIN 40 MG TAB PO SCH (09:32)
[2022-02-19] MEDS: ASPIRIN 81 MG ECTAB PO SCH (09:32)
[2022-02-19] MEDS: CLOPIDOGREL BISULFATE 75 MG TAB PO SCH (09:32)
[2022-02-19] MEDS: LANTUS PER UNIT CHARGE SQ SCH ×2 (09:40→21:03)
[2022-02-19] MEDS: INSULIN ASPART PER UNIT SC SCH ×4 (09:40→21:03)
[2022-02-19] MEDS: dexAMETHasone 1 MG TAB PO SCH ×2 (10:16→21:05)
--- NOTE | 2022-02-19 12:40 | Hospitalist Progress Note ---
Date of Service February 19, 2022 Assessment & Plan (1) Cerebrovascular accident: Plan: Acute ischemic CVA in left CLINICAL DOCUMENTATION SPEC territory . Ipsilateral high-grade stenosis and near complete occlusion of left cavernous carotid, left vertebral artery. Not amenable to intervention at this time per vascular surgery. Right-sided weakness, some decreased right-sided coordination, and right decreased visual acuity with right peripheral field cut. Brain MRI scan final report noted. Some cytotoxic edema. Dexamethasone added. Neurology consultation noted. He is on aspirin, Plavix, atorvastatin. Permissive hypertension. (2) Alcohol dependence: Plan: Scheduled Librium 10 mg 3 times a day. Gradually taper off. Supportive care. AWSS. He has received a Banana bag. Thiamine daily. Folic acid daily (3) Left carotid artery stenosis: Plan: Left-sided focal carotid stenosis, intracranial. Not amenable to vascular intervention at this time per vascular surgery. (4) Hypertension: Plan: Permissive hypertension in the setting of CVA (5) Elevated hemoglobin: Plan: mild elevation in the setting of sleep apnea and chronic tobacco use. Serial labs (6) Coronary artery disease: Plan: Noted with extensive calcifications on CT. Patient denies history of [place]/CAD. Now on atorvastatin. (7) Type 2 diabetes mellitus: Plan: Patient reports BSG was normal after being on metformin, had weight loss and no longer required antilipemics many years ago. Now on Lantus. Sliding scale insulin coverage. ADA diet. (8) Cytotoxic cerebral edema: Plan: Dexamethasone added today, February 19. We will gradually taper off Plan Anticipate eventual discharge to [facility] facility[facility] Admission and Anticipated Discharge Date Admission Date: February 17, 2022 Subjective No new problems. Stable. Brain MRI scan reveals extensive left hemisphere CVA with associated surrounding edema. Dexamethasone has been added. Anticipate discharge to [facility] tomorrowFebruary 20 Review of Systems Review of Systems: Constitutional-no fever or chills ENT-no blurred vision, no double vision, no epistaxis, no sore throat Respiratory-no cough, no wheezing, no shortness of breath Cardiac-no palpitations, no chest pain, no syncope GI-no nausea, vomiting, diarrhea, melena, hematochezia -no urinary retention, no urinary incontinence, no dysuria, no hematuria Musculoskeletal-no joint pain, no muscle tenderness Skin-no bruising, no rashes, no pruritus Neuro-mild right hemiparesis. Psych-no depression, no anxiety Physical Exam Physical Exam: General-alert and oriented x3, no fevers, no chills HEENT-head atraumatic and normocephalic, pupils equal and reactive to light, extraocular muscles intact Neck-no lymphadenopathy or thyromegaly, trachea midline Chest-clear to auscultation percussion. No rales wheezing or rhonchi Cardiac-regular rate and rhythm, normal S1 and S2, no murmurs Abdomen-normal bowel sounds, nontender, no hepatosplenomegaly Extremities-no cyanosis, clubbing, or edema Neuro-cranial nerves II through XII intact, mild right hemiparesis noted. Psych-normal affect, normal mood Results & Data Results & Data ([facility]) Vital Signs (Past 12 Hours) Vital Signs Temp Pulse Pulse Resp BP Pulse Ox O2 Del Method 02/19/22 06:06 94 H 02/19/22 08:23 36.8 C 73 18 129/103 H 98 Room Air Laboratory Results 02/18/22 07:08 02/18/22 08:08 PG Care Time/CCT Total # of Minutes Spent Total Time Spent with Patient: Total time spent is greater than 50% in coordination of care (as documented) at patient's floor/unit and/or counseling patient: Coding Level of Care Code 06425 Subseq Hosp Care Lvl 3 Diagnoses Cerebrovascular accident I63.332 CVA mechanism: thrombosis Laterality of affected vessel: left Precerebral and cerebral artery: posterior cerebral artery Alcohol dependence F10.20 Left carotid artery stenosis I65.22 Hypertension I10 Elevated hemoglobin D58.2 Coronary artery disease I25.10 Type 2 diabetes mellitus E11.9 Cytotoxic cerebral edema G93.6 (1) Cerebrovascular accident CVA mechanism: thrombosis Laterality of affected vessel: left Precerebral and cerebral artery: posterior cerebral artery Qualified Code(s): I63.332 - Cerebral infarction due to thrombosis of left posterior cerebral artery
[2022-02-19] MEDS: METOPROLOL TARTRATE 25 MG TAB PO SCH ×2 (17:26→21:06)
[2022-02-19] MEDS ORDERED: hydrALAZINE HCL 20 MG/ML VIAL IV ONE (23:51)
[2022-02-20] MEDS: INSULIN ASPART PER UNIT SC SCH ×4 (08:32→21:30)
[2022-02-20] MEDS: FOLIC ACID 1 MG in SYRINGE 9.8 ML IV SCH (08:44)
[2022-02-20] MEDS: THIAMINE HCL 100 MG in SYRINGE 9 ML IV SCH (08:44)
[2022-02-20] MEDS: ATORVASTATIN 40 MG TAB PO SCH (08:45)
[2022-02-20] MEDS: CLOPIDOGREL BISULFATE 75 MG TAB PO SCH (08:45)
[2022-02-20] MEDS: ASPIRIN 81 MG ECTAB PO SCH (08:45)
[2022-02-20] MEDS: METOPROLOL TARTRATE 25 MG TAB PO SCH ×2 (08:45→21:32)
[2022-02-20] MEDS: dexAMETHasone 1 MG TAB PO SCH ×2 (08:45→21:32)
[2022-02-20] MEDS: NICOTINE 21 MG/24 HR TDSY TD SCH (08:46)
[2022-02-20] MEDS: LANTUS PER UNIT CHARGE SQ SCH ×2 (08:53→21:31)
--- NOTE | 2022-02-20 14:37 | Hospitalist Progress Note ---
Date of Service February 20, 2022 Assessment & Plan (1) Cerebrovascular accident: Plan: Acute ischemic CVA in left [employer]TER [employer] territory . Ipsilateral high-grade stenosis and near complete occlusion of left cavernous carotid, left vertebral artery. Not amenable to intervention at this time per vascular surgery. Right-sided weakness, some decreased right-sided coordination, and right decreased visual acuity with right peripheral field cut. Brain MRI scan final report noted. Some cytotoxic edema. Dexamethasone added. Neurology consultation noted. He is on aspirin, Plavix, atorvastatin. Permissive hypertension. TTE this visit: LVEF 55 to 60%, heart failure preserved ejection fraction. (2) Alcohol dependence: Plan: Scheduled Librium 10 mg 3 times a day. Will lower today---to prn . Gradually taper off. Supportive care. AWSS. He has received a Banana bag. Thiamine daily. Folic acid daily (3) Nicotine dependence: Plan: Spent 3 to 4 minutes discussing this with him. Does not quite appear ready to quit smoking yet. On 21 mg/day patch and uses up 4 to 6 pack of cigarettes for the last 30 Y (4) Dyslipidemia: Plan: Statinquit smoking. HDL 38 despite excessive alcohol use (5) Left carotid artery stenosis: Plan: Left-sided focal carotid stenosis, intracranial. Not amenable to vascular intervention at this time per vascular surgery. (6) Hypertension: Plan: Permissive hypertension in the setting of CVA BP in the 140s mostly (7) Elevated hemoglobin: Plan: mild elevation in the setting of sleep apnea and chronic tobacco use. Serial labs (8) Coronary artery disease: Plan: Noted with extensive calcifications on CT. Patient denies history of [place]/CAD. Now on atorvastatin. (9) Type 2 diabetes mellitus: Plan: Patient reports BSG was normal after being on metformin, had weight loss and no longer required antilipemics many years ago. ADA diet. 196, 183, 145, 155 Dexamethasone and on Lantus insulin, sliding scale insulin in addition to his home metformin (10) Cytotoxic cerebral edema: Plan: Dexamethasone added today, February 19. We will gradually taper off Plan Anticipate eventual discharge to [facility] facility. [facility], February 21-due to the snowstorm, discharges were not done there and no beds available yet . The patient's insight and judgment appear limited. Today was my first meeting with him. He has been asked to see a primary care doctor regularly and I will emphasize that again tomorrow at time of discharge Admission and Anticipated Discharge Date Admission Date: February 17, 2022 Subjective seen at 1140 h Was on the phone for 30 minutes prior to that with his father conversing. No complaints. Denies depressed mood. Has a little craving for smoking he says. Not seen any primary care doctor in over a year and does not see one regularly. Physical Exam Physical Exam: Well-looking, sitting in bed and was conversing on the phone for a long time. Unable to name the president. Unable to name the hospital though he knows he is in hospital. 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 Head and neck moist tongue on anicteric sclerae Chest is clear to oscillation CVs S1-S2 no murmur Abdomen lax nontender Extremities no edema For5 out of 5 right knee extensors and right elbow flexors, 5 out of 5 corresponding muscles left side, cranial nerves II to XII intact, word finding difficulties extensively as above. Results & Data Results & Data ([facility]) Vital Signs (Past 12 Hours) Vital Signs Temp Pulse Pulse Resp BP Pulse Ox O2 Del Method 02/20/22 06:10 76 02/20/22 07:15 36.4 C L 77 17 142/94 H 99 Room Air 02/20/22 03:48 36.5 C 75 18 152/89 H 97 Room Air Laboratory Results Abnormal lab results 02/19/22 02/19/22 02/20/22 Range/Units 16:29 20:43 07:18 POC Glucose 154 H 183 H 159 H (70-99) mg/dl 02/20/22 Range/Units 11:32 POC Glucose 196 H (70-99) mg/dl Medications Administered Home Medications Medication Instructions Recorded Confirmed Last Taken No Known Home Medications 02/17/22 02/17/22 Unknown Active Medications Generic Name Dose Route Start Last Admin Trade Name Nhoemi PRN Reason Stop Dose Admin Aspirin 81 mg 02/18/22 09:00 02/20/22 08:45 Aspirin 81 Mg Ectab PO 03/20/22 08:59 81 mg QAM RADHA Administration Atorvastatin Calcium 40 mg 02/18/22 09:00 02/20/22 08:45 Atorvastatin 40 Mg Tab PO 03/20/22 08:59 40 mg QAM RADHA Administration Chlordiazepoxide HCl 10 mg 02/18/22 14:00 02/20/22 08:44 Chlordiazepoxide Hcl 10 Mg Cap PO 03/20/22 13:59 10 mg TID RADHA Administration Clopidogrel Bisulfate 75 mg 02/18/22 13:00 02/20/22 08:45 Clopidogrel Bisulfate 75 Mg Tab PO 03/20/22 12:59 75 mg QAM RADHA Administration Dexamethasone 2 mg 02/19/22 09:00 02/20/22 08:45 Dexamethasone 1 Mg Tab PO 03/21/22 08:59 2 mg BID RADHA Administration Thiamine HCl 100 mg/ Syringe 10 mls @ 2 mls/min 02/19/22 09:00 02/20/22 08:44 IV 03/21/22 08:59 2 mls/min QAM RADHA Administration Folic Acid 1 mg/ Syringe 10 mls @ 5 mls/min 02/18/22 09:00 02/20/22 08:44 IV 03/20/22 08:59 5 mls/min QAM RADHA Administration Insulin Aspart 0 units 02/17/22 21:00 02/20/22 12:25 Insulin Aspart Per Unit SC 03/19/22 20:59 7 units ACHS RADHA Administration Insulin Glargine 8 units 02/17/22 21:00 02/20/22 08:53 Lantus Per Unit Charge SQ 03/19/22 20:59 8 units BID RADHA Administration Labetalol HCl 5 mg 02/17/22 18:22 02/17/22 23:56 Labetalol Hcl Iv 5 Mg/Ml 20ml IV 03/19/22 18:21 5 mg Q4H PRN Administration SBP > 180 Metoprolol Tartrate 25 mg 02/19/22 15:30 02/20/22 08:45 Metoprolol Tartrate 25 Mg Tab PO 03/21/22 15:29 25 mg BID RADHA Administration Miscellaneous 1 each 02/18/22 08:59 02/20/22 08:49 Remove Nicoderm Patch N/A 03/20/22 08:58 Not Given DAILY@0859 RADHA Nicotine 21 mg 02/17/22 14:45 02/20/22 08:46 Nicotine 21 Mg/24 Hr Tdsy TD 03/19/22 14:44 21 mg QAM RADHA Administration PG Care Time/CCT Total # of Minutes Spent Total Time Spent with Patient: Total time spent is greater than 50% in coordination of care (as documented) at patient's floor/unit and/or counseling patient: Coding Level of Care Code 99856 Subseq Hosp Care Lvl 2 Diagnoses Cerebrovascular accident I63.332 CVA mechanism: thrombosis Laterality of affected vessel: left Precerebral and cerebral artery: posterior cerebral artery Alcohol dependence F10.20 Nicotine dependence F17.200 Dyslipidemia E78.5 Left carotid artery stenosis I65.22 Hypertension I10 Elevated hemoglobin D58.2 Coronary artery disease I25.10 Type 2 diabetes mellitus E11.9 Cytotoxic cerebral edema G93.6 (1) Cerebrovascular accident CVA mechanism: thrombosis Laterality of affected vessel: left Precerebral and cerebral artery: posterior cerebral artery Qualified Code(s): I63.332 - Cerebral infarction due to thrombosis of left posterior cerebral artery
[2022-02-20] MEDS: chlordiazePOXIDE HCl 5 MG CAP PO PRN (21:32)
[2022-02-21] MEDS: THIAMINE HCL 100 MG in SYRINGE 9 ML IV SCH (08:02)
[2022-02-21] MEDS: FOLIC ACID 1 MG in SYRINGE 9.8 ML IV SCH (08:02)
[2022-02-21] MEDS: chlordiazePOXIDE HCl 5 MG CAP PO PRN (08:03)
[2022-02-21] MEDS: METOPROLOL TARTRATE 25 MG TAB PO SCH (08:03)
[2022-02-21] MEDS: CLOPIDOGREL BISULFATE 75 MG TAB PO SCH (08:03)
[2022-02-21] MEDS: ATORVASTATIN 40 MG TAB PO SCH (08:03)
[2022-02-21] MEDS: ASPIRIN 81 MG ECTAB PO SCH (08:03)
[2022-02-21] MEDS: dexAMETHasone 1 MG TAB PO SCH (08:03)
[2022-02-21] MEDS: NICOTINE 21 MG/24 HR TDSY TD SCH (08:04)
[2022-02-21] MEDS: INSULIN ASPART PER UNIT SC SCH (08:07)
[2022-02-21] MEDS: LANTUS PER UNIT CHARGE SQ SCH (08:09)
--- NOTE | 2022-02-21 10:10 | Discharge Summary ---
Date of Service February 21, 2022 Admission HPI Per Admitting Provider Anton Morales is a 56-year-old male with daily alcohol use, tobacco use, history of hypertension, DM2 who presented with 2 weeks of right upper and lower extremity poor coordination and expressive aphasia and to was recommended for stroke management. Head CT shows a large subacute left SOUND PERSON infarct, no hemorrhage/midline shift, complete thrombosis of the left SOUND PERSON, focal high-grade stenosis with near complete occlusion of left cavernous carotid, focal high-grade stenosis of proximal left vertebral artery, mild stenosis at the origin of the right vertebral, moderate stenosis of right subclavian Chest CTA: Unremarkable CT angiogram of the thoracic aorta, moderate stenosis of right subclavian artery, focal high-grade stenosis of proximal left vertebral, no evidence of PE, advanced coronary calcification CXR: Bibasilar linear densities favoring atelectasis versus scarring Admitting WBC 11.25, hemoglobin 19? Hemoconcentration versus polycythemia with tobacco use MCV 90 INR 1.2 Sodium 134, potassium 3.7 Creatinine 0.83 with normal baseline Total bili 1.4, AST 12, ALT 10, alk phos 104 Ethyl alcohol negative COVID-negative EKG: Normal sinus rhythm with poor R wave progression. Sinus, rate 96. EKG 07/18/2022: A. fib rate controlled External medication reconciliation unavailable PCP Dr. Ervin Dominguez is seen at the beside with his present. Endorses R side arm and leg weakness. AWSS 8. "Sydni" reports over the last 3-4 weeks has been having numbness, tingling and poor coordination in his R arm and leg. Has had some pain sometimes and then complete numbness in the R arm/hand/leg intermittently. His came home from work this past thursday (48 hours ago) and was still in bed. Walking was muchmore unstable than previously, and was staying in bed very fatigued and weak. 'Equilibrium jsut wasn't right" Seems more forgetful and has been having some difficulty with word searching. L arm is 'ok sometimes some light tingling in fingertips but nothing like the right.' EtOH intake daily. AWife thought it might have been withdrawal and didn't immediately come in for stroke bc thought it could have been alchol Daily drinking 2x whiskey in the evening, each drink 'to go coffee cup sized.' 1.5 handle per week, cut back about 6 months from a handle every few days. Has not had an alcohol free period greater than 24 hours in 'a long time.' NO hx of seizures, no history of alcohol withdrawal. Daily smoker 1ppd since teenager, at least 40 years No vaping Denies hx of heart attacks, chest pain, or stroke Denies hx of TIA Endorses RIA on CPAP Denies hx COPD Not sure if HTN Hx T2DM. Pt thinks he was on this a whiel ago, his reports this was ~9 years ago, has not been on recently and pt thinks his blood sugar was good and was OK to stop this. Was on 'some type of shot at one point.' Lost a lot of weight on a shot, doesn't remember the details but hasn't needed a medicine for blood sugar in ~4-5 years. 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 Code Status: Full Code. Principal Diagnosis Subacute left SOUND PERSON stroke involving the left occipital lobe extending to the temporal lobe and left thalamus with dense right homonymous hemianopsia Alcohol abuse Nicotine dependence Discharge Exam Well-looking,, walking around halls finding ice for his cup Unable to name the president. Unable to name the hospital though he knows he is in hospital. Unable to name the month Can name the month promptly and where he is as well as the name of the hospital today compared with yesterday. However tried hard to name the [place] president without success. He named several others besides the present one Biden. Head and neck moist tongue anicteric sclerae Chest CTA CVs S1-S2 no murmur Abdomen lax nontender Extremities no edema Gait as above 45 out of 5 right knee extensors and right elbow flexors, 5 out of 5 corresponding muscles left side, cranial nerves II to XII intact, able to describe was seen in a picture, however unable to read tip top. spelled TIP as TER, and MAMA as REM. Discharge Data Allergies Allergy/AdvReac Type Severity Reaction Status Date / Time No Known Allergies Allergy Mild NKA Verified 02/17/22 15:50 Consultations 02/17/22 15:00 ED Decision to Admit Stat 02/17/22 17:25 Consult Neurology Routine Ordered Studies 02/17/22 10:17 CT angio head w con Stat CT angio neck with con Stat CT head/brain wo con Stat 02/17/22 10:40 CT angio chest dissec wo/w con Stat 02/17/22 17:25 MR brain wo con Routine Hospital Course (1) Cerebrovascular accident: Acute ischemic CVA in left SOUND PERSON territory . Ipsilateral high-grade stenosis and near complete occlusion of left cavernous carotid, left vertebral artery. Not amenable to intervention at this time per vascular surgery. Right-sided weakness, some decreased right-sided coordination, and right decreased visual acuity with right peripheral field cut. Brain MRI scan final report noted. Some cytotoxic edema. Dexamethasone added. Neurology consultation noted. He is on aspirin, Plavix, atorvastatin. Does not see doctors. Health literacy is hard to assess with his poststroke status but appears quite suboptimal. Has a high school education. bp 149/94 at discharge TTE this visit: LVEF 55 to 60%, heart failure preserved ejection fraction. telemetry : NSR here all the time. Did not want to wear the monitor the last 3 to 4 hours that he was here. (2) Alcohol dependence: Scheduled Librium 10 mg 3 times a day by his first attending. Stopped at discharge To stay on thiamine and folic acid. Moderate alcohol consumption daily for many years. (3) Nicotine dependence: Spent 3 to 4 minutes discussing this with him 02/20 and repeated on the day of discharge. Motivation appears suboptimal. Does not quite appear ready to quit smoking yet. On 21 mg/day patch and smokes up 4 to 6 pack of cigarettes for the last 30 Years (4) Dyslipidemia: Statinquit smoking. HDL 38 despite excessive alcohol use Declined to see dietitian on the day of discharge (5) Left carotid artery stenosis: Left-sided focal carotid stenosis, intracranial. Not amenable to vascular intervention at this time per vascular surgery. (6) Hypertension: Permissive hypertension in the setting of CVA BP in the 140s mostly (7) Elevated hemoglobin: mild elevation in the setting of sleep apnea and chronic tobacco use. Serial labs (8) Coronary artery disease: Noted with extensive calcifications on CT. Patient denies history of [place]/CAD. Now on atorvastatin. Needs close primary care follow (9) Type 2 diabetes mellitus: Patient reports BSG was normal after being on metformin, had weight loss and no longer required antilipemics many years ago. ADA diet. 204, 206, 190, 183, 145 -last 24 hours( from latest to remotest) Lantus 8 units subcu twice daily given here. Will need to be increased a little bit at rehab because blood sugars creeping up. Hemoglobin A1c 7.4%. Dexamethasone and on Lantus insulin, sliding scale insulin in addition to his home metformin (10) (HFpEF) heart failure with preserved ejection fraction: Asymptomatic and mildneeds adequate BP control. Plan 1. Being discharged to [facility] today 2. He has been asked to see a primary care doctor regularly. 3. needs dietary adviceLDL is 108 and HDL low at 38 despite moderate alcohol use. Declined to see the dietitian today Close follow-up of mood. Has been irritable here but vehemently denying depressed mood. 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 That is your biggest risk factor for stroke. Your hemoglobin A1c indicates diabetes control and was mildly elevated at 7.4%. Our goal is under 7. You also have mild heart failure from poorly controlled blood pressure. You must see a primary care physician regularly for the rest of his life A low carbohydrate heart healthy diet needs to be explained to you. You declined dietary consult here Pending Studies at Discharge: No Stand-Alone Forms: My [employer], Medications to Prevent Stroke Skilled Items Patient informed of condition?: No DNR: No Discharge Level of Care: Acute rehab Communicable Disease: No Discharge Prognosis: Improving Lines: None Urinary Catheter: No Medications and DC Order Prescriptions: New nicotine [Nicoderm CQ] 21 mg/24 hr Patch 24 Hour 21 mg transdermal QAM Qty: 20 0RF clopidogrel 75 mg Tablet 75 mg PO QAM Qty: 7 0RF atorvastatin 40 mg Tablet 40 mg PO QAM Qty: 10 0RF metoprolol tartrate 25 mg Tablet 25 mg PO BID Qty: 7 0RF aspirin 81 mg Tablet,Delayed Release (Dr/Ec) 81 mg PO QAM Qty: 7 0RF insulin glargine [Lantus U-100 Insulin] 100 unit/mL Solution 8 unit subcut BID Qty: 10 0RF (DME) Remove Nicoderm Patch See Rx Instructions .ROUTE .MEDSUPPLY Qty: 1 0RF Rx Instructions: As directed Discharge Orders: Discharge Order (Routine); Ordered 02/21/22 Ordered By: Pepe Hardin/Other Patient Handouts: 5 Steps for Eating Healthier, Exercise: Why Fitness Matters, Type 2 Diabetes Admission Data Admit Date/Time: 02/17/22 15:54 Attending Provider: Pepe Lino Admit Provider: Adan Pretty Primary Care Provider: Seth Mueller Other Providers: Adan Pretty ; Seth Jackson ; [facility] ; [facility] Coding Level of Care Code D/C DAY MANAGEMENT >30 MINS Diagnoses Cerebrovascular accident I63.332 CVA mechanism: thrombosis Laterality of affected vessel: left Precerebral and cerebral artery: posterior cerebral artery Alcohol dependence F10.20 Nicotine dependence F17.200 Dyslipidemia E78.5 Left carotid artery stenosis I65.22 Hypertension I10 Elevated hemoglobin D58.2 Coronary artery disease I25.10 Type 2 diabetes mellitus E11.9 (HFpEF) heart failure with preserved ejection fraction I50.30
== END 2022-02-21 11:12 | DRG 64 ==
LOC: ED 10:03 → SUATTDRO 15:54 → 2E 15:54